=== PATIENT | female | born 1945 | race Caucasian/White ===

== ENCOUNTER 2022-11-11 17:41 | Inpatient (IN) ==
[2022-11-11] MEDS ORDERED: IPRATROPIUM/ALBUTEROL 3 ML AMPUL.NEB NEB ONE ×2 (18:02→19:08)
[2022-11-11] MEDS ORDERED: methylPREDNISolone SOD SUCC 125 MG/2 ML VIAL IV ONE (18:02)
--- NOTE | 2022-11-11 18:10 | Emergency Department Note ---
HPI <Marcus Amaya DO - Last Filed: 11/11/22 21:04> General Chief complaint: Weakness Stated complaint: Wants home health Time Seen by Provider: 11/11/22 18:02 Source: EMS Mode of arrival: EMS Limitations: physical limitation History of Present Illness HPI Narrative: Narrative: 77-year-old female presents the emergency department this patient is well-known to me I did read the chart when she was here from Monday and actually saw her over at [facility] in the emergency department 2 days ago for similar reason. She presents here via EMS as she still having chronic back pain as well as having a hard time breathing. states is unable to care for her that she is keeps on falling whenever she tries to walk and just said she is just so weak and tired and having a hard time breathing. She is still having a hard time breathing she still complain of just horrible back pain as well. Patient states that she just is unable to care for herself. This is now been her third visit within the last 4 days to multiple emergency departments mainly complaining of back pain but also the shortness of breath. Related Data Allergies Allergy/AdvReac Type Severity Reaction Status Date / Time acetaminophen [From Percocet] AdvReac Unknown Verified 11/11/22 17:44 aspirin [From Percodan] AdvReac Unknown Verified 11/11/22 17:44 midazolam [From Versed] AdvReac Unknown Verified 11/11/22 17:44 Morpholine Analogues AdvReac Unknown Verified 11/11/22 17:44 oxycodone [From Percodan] AdvReac Unknown Verified 11/11/22 17:44 Penicillins AdvReac Unknown Verified 11/11/22 17:44 Phenothiazines AdvReac Unknown Verified 11/11/22 17:44 prochlorperazine AdvReac Unknown Verified 11/11/22 17:44 [From Compazine] Review of Systems <Marcus mAaya DO - Last Filed: 11/11/22 21:04> ROS ROS Narrative: Narrative: All systems ED: reviewed and negative except as stated. PFSH <Marcus Amaya DO - Last Filed: 11/11/22 21:04> Narrative Patient History Narrative: Narrative: Medical/Surgical/Family History All Active Problems (Updated 11/11/22 @ 18:31 by Marcus Brown, DO) Closed compression fracture of lumbar vertebra (Acute) Hypoxia (Acute) Tobacco abuse (Acute) Obesity (BMI 30.0-34.9) (Acute) Medication side effect (Acute) Left against medical advice (Acute) T12 compression fracture (Acute) Acute exacerbation of chronic obstructive pulmonary disease (Acute) Acute respiratory failure with hypoxemia (Acute) Social History Smoking Status: Current every day smoker Exam <Marcus Amaya - Last Filed: 11/11/22 21:04> Narrative Narrative: Narrative: Vital signs noted General: Awake. Alert. No distress. Skin: Warm. Dry. No rash. HEENT: NCAT. PERRL. EOMI. No conjunctivitis. No nystagmus. No pharyngitis. Membranes moist. Neck: No PTP. Good ROM. No meningeal signs. No stridor. No thyromegaly. No JVD. Cardiovascular: RRR. No murmur. No rubs. No gallops. Respiratory: No respiratory distress with wheezes and rhonchi heard throughout. Gastrointestinal: Abdomen soft. No tenderness. No distention. Normal bowel sounds. No palpable organomegaly or masses. Back: No deformity. Lumbar back pain. But no step-offs or noticeable fractures. No CVAT. Musculoskeletal: No tenderness. No swelling. No erythema. No edema. Good peripheral pulses x 4 Lymphatic: No palpable adenopathy. Neurological: No focal neurological deficits observed. General Limitations: physical limitation Course <Marcus AmayaDO - Last Filed: 11/11/22 21:04> Vital Signs Vital signs: Vital Signs Temperature 98 F 11/11/22 17:42 Pulse Rate 99 H 11/11/22 17:42 Respiratory Rate 16 11/11/22 17:42 Blood Pressure 154/83 11/11/22 17:42 Pulse Oximetry (%) 88 L 11/11/22 17:42 Oxygen Delivery Method Room Air 11/11/22 17:42 Temperature 98 F 11/11/22 17:42 Pulse Rate 94 H 11/11/22 20:26 Respiratory Rate 16 11/11/22 17:42 Blood Pressure 137/47 11/11/22 20:01 Pulse Oximetry (%) 91 11/11/22 20:26 Oxygen Delivery Method Nasal Cannula 11/11/22 20:26 Oxygen Flow Rate (L/min) 3 11/11/22 20:26 <Abel Sandhu MD - Last Filed: 11/11/22 20:23> Consultations Consultation #1: The patient was inherited at change of shift with labs pending and disposition to admit. I have reviewed the patient's labs. I spoke with the hospitalist, Dr. Gee. He agreed to admit the patient. Time: 20:22 Vital Signs Vital signs: Vital Signs Temperature 98 F 11/11/22 17:42 Pulse Rate 99 H 11/11/22 17:42 Respiratory Rate 16 11/11/22 17:42 Blood Pressure 154/83 11/11/22 17:42 Pulse Oximetry (%) 88 L 11/11/22 17:42 Oxygen Delivery Method Room Air 11/11/22 17:42 Temperature 98 F 11/11/22 17:42 Pulse Rate 94 H 11/11/22 20:26 Respiratory Rate 16 11/11/22 17:42 Blood Pressure 137/47 11/11/22 20:01 Pulse Oximetry (%) 91 11/11/22 20:26 Oxygen Delivery Method Nasal Cannula 11/11/22 20:26 Oxygen Flow Rate (L/min) 3 11/11/22 20:26 MDM <Marcus Amaya DO - Last Filed: 11/11/22 21:04> MDM Narrative Medical decision making narrative: Narrative: Patient presents here with shortness of breath and lower back pain. I actually saw her over at [facility]. I did review my note and the CT radiological imaging that was done over there. Over there is a CT of the thoracic and lumbar spine was done as well as a CT angiogram of the chest as the previous visit here the patient left AMA before getting a CT angiogram of the chest as patient e levated D-dimer to rule out PE. There was no signs of PE on the CT angiogram of the chest. Also the lumbar spine did show a less than 50% compression fracture of T12. Patient is here she is very hypoxemic. She was in her previous visit as well as when she was over at [facility] with oxygen saturations below 90% and she does not have oxygen at home. She is satting and when I was seeing her without any oxygen around 84 to 85% and deftly have a hard harder time breathing. I am this is COPD that she has chronically that is exasperating is making it worse. Again I have very low suspicion for PE as 2 days ago she had a CT angiogram that was negative for PE so I do not think it is warranted to repeat a CT angiogram at this time. I will go ahead and get basic labs including CBC, CMP, procalcitonin, VBG. We will also get a chest x-ray. We will go ahead and give patient 3 DuoNeb treatments help see if that opens her up and helps with her breathing. We will also give her 125 mg of Solu-Medrol for the COPD exacerbation. This to be given IV. Patient I think is needing oxygen and she does not have oxygen at home as she is obviously hypoxemic. I think patient will most likely need to be admitted and I think overall needs to be admitted to a long term facility. I did speak with patient and family and they are okay with that plan. Labs and imaging are still pending. Labs and imaging are pending at the end of my shift. Patient will be signed out to the nighttime physician. Patient is no longer hypoxic while on oxygen she is on 2 L of oxygen now at 94% but is requiring oxygen whenever it comes off she does drop below 90. Lab Data 11/11/22 18:25 Labs: Lab Results 11/11/22 11/11/22 11/11/22 Range/Units 18:25 18:25 18:25 WBC 8.2 (4.5-11.0) K/mcL RBC 4.43 (3.59-5.38) M/mcL Hgb 15.2 (11.2-15.7) g/dL Hct 45.0 H (34.1-44.9) % POC Hct (36-48) MCV 101.6 H (80.0-100.0) fL MCH 34.3 H (26.0-34.0) pg MCHC 33.8 (31.0-36.0) g/dL RDW 12.3 (11.5-14.5) % Plt Count 247 (140-440) K/mcL MPV 10.4 (8.8-12.5) fL Immature Gran % (Auto) 0.5 (0.0-0.5) % Neut % (Auto) 72.6 (38.0-78.0) % Lymph % (Auto) 18.3 (15.5-49.0) % [place] % (Auto) 7.2 (1.0-12.0) % Eos % (Auto) 1.0 (0.0-7.0) % Baso % (Auto) 0.4 (0.0-2.0) % Lymph # (Auto) 1.51 (1.50-4.80) K/mcL [place] # (Auto) 0.59 (0.10-0.90) K/mcL Eos # (Auto) 0.08 (0.00-0.70) K/mcL Baso # (Auto) 0.03 (0.00-0.30) K/mcL Immature Gran # 0.04 (0.00-0.05) K/mcl Absolute Neutrophils 5.98 (1.80-8.00) K/mcL POC Sodium (133-145) POC Potassium (3.3-5.1) POC Chloride (96-108) POC Total CO2 (22-30) POC BUN (6-20) POC Creatinine (0.6-1.2) POC Glucose (70-105) POC WB Ioniz Calcium (1.16-1.32) NT-Pro-B Natriuret Pep 4986.0 H (<450.0) pg/mL Procalcitonin 6.47 H (<0.10) ng/mL 11/11/22 Range/Units 18:31 WBC (4.5-11.0) K/mcL RBC (3.59-5.38) M/mcL Hgb (11.2-15.7) g/dL Hct (34.1-44.9) % POC Hct 47.0 (36-48) MCV (80.0-100.0) fL MCH (26.0-34.0) pg MCHC (31.0-36.0) g/dL RDW (11.5-14.5) % Plt Count (140-440) K/mcL MPV (8.8-12.5) fL Immature Gran % (Auto) (0.0-0.5) % Neut % (Auto) (38.0-78.0) % Lymph % (Auto) (15.5-49.0) % [place] % (Auto) (1.0-12.0) % Eos % (Auto) (0.0-7.0) % Baso % (Auto) (0.0-2.0) % Lymph # (Auto) (1.50-4.80) K/mcL [place] # (Auto) (0.10-0.90) K/mcL Eos # (Auto) (0.00-0.70) K/mcL Baso # (Auto) (0.00-0.30) K/mcL Immature Gran # (0.00-0.05) K/mcl Absolute Neutrophils (1.80-8.00) K/mcL POC Sodium 137 (133-145) POC Potassium 4.6 (3.3-5.1) POC Chloride 99 (96-108) POC Total CO2 31.0 H (22-30) POC BUN 34 H (6-20) POC Creatinine 1.2 (0.6-1.2) POC Glucose 84 (70-105) POC WB Ioniz Calcium 1.16 (1.16-1.32) NT-Pro-B Natriuret Pep (<450.0) pg/mL Procalcitonin (<0.10) ng/mL <Abel Sandhu MD - Last Filed: 11/11/22 20:23> Lab Data Labs: Lab Results 11/11/22 11/11/22 11/11/22 Range/Units 18:25 18:25 18:25 WBC 8.2 (4.5-11.0) K/mcL RBC 4.43 (3.59-5.38) M/mcL Hgb 15.2 (11.2-15.7) g/dL Hct 45.0 H (34.1-44.9) % POC Hct (36-48) MCV 101.6 H (80.0-100.0) fL MCH 34.3 H (26.0-34.0) pg MCHC 33.8 (31.0-36.0) g/dL RDW 12.3 (11.5-14.5) % Plt Count 247 (140-440) K/mcL MPV 10.4 (8.8-12.5) fL Immature Gran % (Auto) 0.5 (0.0-0.5) % Neut % (Auto) 72.6 (38.0-78.0) % Lymph % (Auto) 18.3 (15.5-49.0) % [place] % (Auto) 7.2 (1.0-12.0) % Eos % (Auto) 1.0 (0.0-7.0) % Baso % (Auto) 0.4 (0.0-2.0) % Lymph # (Auto) 1.51 (1.50-4.80) K/mcL [place] # (Auto) 0.59 (0.10-0.90) K/mcL Eos # (Auto) 0.08 (0.00-0.70) K/mcL Baso # (Auto) 0.03 (0.00-0.30) K/mcL Immature Gran # 0.04 (0.00-0.05) K/mcl Absolute Neutrophils 5.98 (1.80-8.00) K/mcL POC Sodium (133-145) POC Potassium (3.3-5.1) POC Chloride (96-108) POC Total CO2 (22-30) POC BUN (6-20) POC Creatinine (0.6-1.2) POC Glucose (70-105) POC WB Ioniz Calcium (1.16-1.32) NT-Pro-B Natriuret Pep 4986.0 H (<450.0) pg/mL Procalcitonin 6.47 H (<0.10) ng/mL 11/11/22 Range/Units 18:31 WBC (4.5-11.0) K/mcL RBC (3.59-5.38) M/mcL Hgb (11.2-15.7) g/dL Hct (34.1-44.9) % POC Hct 47.0 (36-48) MCV (80.0-100.0) fL MCH (26.0-34.0) pg MCHC (31.0-36.0) g/dL RDW (11.5-14.5) % Plt Count (140-440) K/mcL MPV (8.8-12.5) fL Immature Gran % (Auto) (0.0-0.5) % Neut % (Auto) (38.0-78.0) % Lymph % (Auto) (15.5-49.0) % [place] % (Auto) (1.0-12.0) % Eos % (Auto) (0.0-7.0) % Baso % (Auto) (0.0-2.0) % Lymph # (Auto) (1.50-4.80) K/mcL [place] # (Auto) (0.10-0.90) K/mcL Eos # (Auto) (0.00-0.70) K/mcL Baso # (Auto) (0.00-0.30) K/mcL Immature Gran # (0.00-0.05) K/mcl Absolute Neutrophils (1.80-8.00) K/mcL POC Sodium 137 (133-145) POC Potassium 4.6 (3.3-5.1) POC Chloride 99 (96-108) POC Total CO2 31.0 H (22-30) POC BUN 34 H (6-20) POC Creatinine 1.2 (0.6-1.2) POC Glucose 84 (70-105) POC WB Ioniz Calcium 1.16 (1.16-1.32) NT-Pro-B Natriuret Pep (<450.0) pg/mL Procalcitonin (<0.10) ng/mL Discharge Plan Patient/Caregiver Discharge Instructions Pt seen by CABLE TOWER OPERATOR/PA only: No Clinical Impression: Acute exacerbation of chronic obstructive pulmonary disease, Acute respiratory failure with hypoxemia T12 compression fracture Qualifiers: Encounter type: initial encounter Qualified Code(s): S22.080A - Wedge compression fracture of T11-T12 vertebra, initial encounter for closed fracture Patient Disposition: Xfer As Inpt ([facility]) Condition: Fair Follow up with: Harrison Rubin DO [Primary Care Provider] -
--- NOTE | 2022-11-11 18:30 | XRay Report ---
CLINICAL INFORMATION: Dyspnea COMPARISON: 11/08/2022 TECHNIQUE: Portable FINDINGS: The heart is mildly enlarged. Slightly ectatic thoracic aorta noted. Remaining mediastinum is normal. Pulmonary vessels are slightly distended compared to previous exam. There is equivocal interstitial edema in the lateral bases. Minor bibasilar atelectasis noted. No effusions. IMPRESSION: Equivocal CHF. Consider diuretic trial Interpreted and Authenticated by: Valerio Calvo 11/11/22
[2022-11-11 18:34] LABS: POC Calcium, Ionized 1.16 (1.16-1.32); POC Creatinine 1.2 (0.6-1.2); POC Potassium 4.6 (3.3-5.1)
[2022-11-11] MEDS ORDERED: FUROSEMIDE 40 MG/4 ML VIAL IV ONE (19:03)
[2022-11-11 19:06] LABS: Basophils # (Auto) 0.03 K/mcL (0.00-0.30); Basophils % (Auto) 0.4 % (0.0-2.0); Eosinophils # (Auto) 0.08 K/mcL (0.00-0.70); Hemoglobin 15.2 g/dL (11.2-15.7); Lymphocytes # (Auto) 1.51 K/mcL (1.50-4.80); Lymphocytes % (Auto) 18.3 % (15.5-49.0); Mean Cell Volume 101.6 fL (80.0-100.0); Mean Corpuscular HGB Conc 33.8 g/dL (31.0-36.0); Mean Platelet Volume 10.4 fL (8.8-12.5); Monocytes # (Auto) 0.59 K/mcL (0.10-0.90); Monocytes % (Auto) 7.2 % (1.0-12.0); Neutrophils % (Auto) 72.6 % (38.0-78.0); Platelet Count 247 K/mcL (140-440); RBC 4.43 M/mcL (3.59-5.38); Red Cell Distribution Width 12.3 % (11.5-14.5); WBC 8.2 K/mcL (4.5-11.0)
--- NOTE | 2022-11-11 20:43 | Internal Med History&Physical ---
HPI History of Present Illness Patient information: Note initiated : 11/11/22 at 8:33 pm Service Date, if different from initiated Date: [] Patient: Shiva Esparza a 77 y/o F admitted on for [facility]. Chief Complaint: [] History of present illness: Ms. Esparza is a 77 year old F Presents the ED for back pain and weakness and her unable to care for her. Beginning of the week she fell and was seen over at [facility] where she had work-up and found to have a acute compression fracture of T12. She also was found to be hypoxic and had a CTA of the chest which showed no PE but did show infiltrate right lung described as mild patchy groundglass and will treat right middle lobe and right upper lobe. Also noted was moderate emphysema disease throughout. We do not have any medication list on file but she says she takes hydroc hlorothiazide and a cholesterol medication has a history of postpolio syndrome chronic pain hypertension hyperlipidemia. Patient states she does not feel short of breath and does not have a cough. She has not gained any weight including water weight or edema lately. Denies feeling wheezy. Since her original fall she is had subsequent falls and her cannot take care of her. In the ED she was mildly tachycardic. She had elevated procalcitonin of 6.4. Review of Systems: Pertinent positives above. Denies headache/fever/chills/nausea/vomiting/chest or abdominal pain/diarrhea. Remaining 10 point review of system reviewed negative PFSH PFSH All Active Problems (Updated 11/11/22 @ 18:31 by Marcus Amaya DO) Closed compression fracture of lumbar vertebra (Acute) Hypoxia (Acute) Tobacco abuse (Acute) Obesity (BMI 30.0-34.9) (Acute) Medication side effect (Acute) Left against medical advice (Acute) T12 compression fracture (Acute) Acute exacerbation of chronic obstructive pulmonary disease (Acute) Acute respiratory failure with hypoxemia (Acute) Social History smoking status: Current every day smoker MEDS/ALLERGIES Home Medications and Allergies Allergies Allergy/AdvReac Type Severity Reaction Status Date / Time acetaminophen [From Percocet] AdvReac Unknown Verified 11/11/22 17:44 aspirin [From Percodan] AdvReac Unknown Verified 11/11/22 17:44 midazolam [From Versed] AdvReac Unknown Verified 11/11/22 17:44 Morpholine Analogues AdvReac Unknown Verified 11/11/22 17:44 oxycodone [From Percodan] AdvReac Unknown Verified 11/11/22 17:44 Penicillins AdvReac Unknown Verified 11/11/22 17:44 Phenothiazines AdvReac Unknown Verified 11/11/22 17:44 prochlorperazine AdvReac Unknown Verified 11/11/22 17:44 [From Compazine] EXAM Constitutional Vitals: Temp Pulse Resp BP Pulse Ox O2 Del Method O2 Flow Rate 98 F 94 H 16 137/47 91 Nasal Cannula 3 11/11/22 17:42 11/11/22 20:26 11/11/22 17:42 11/11/22 20:01 11/11/22 20:26 11/11/22 20:26 11/11/22 20:26 Exam: General: Alert, Awake, No acute Distress Eyes/N/T: EOMI, PERRL, poor dentition Head/Neck: neck supple, normocephalic atraumatic, no JVD CV: RRR, No murmurs, normal s1/s2 Pulm: minimaly diminished at base but otherwise clear anterior and laterally, no wheezing Abd: soft, nontender, +BS x4 Ext: no clubbing/cyanosis, no edema Neuro: Alert, no focal deficits, moves all extremities, CN 2-12 grossly intact, sensations intact b/l upper/lower Skin: warm/dry DATA Data Completed and Pending Labs: Labs from last 24 hours 11/11/22 11/11/22 11/11/22 18:31 18:25 18:25 WBC RBC Hgb Hct POC Hct 47.0 MCV MCH MCHC RDW Plt Count MPV Immature Gran % (Auto) Neut % (Auto) Lymph % (Auto) [place] % (Auto) Eos % (Auto) Baso % (Auto) Lymph # (Auto) [place] # (Auto) Eos # (Auto) Baso # (Auto) Immature Gran # Absolute Neutrophils POC Sodium 137 POC Potassium 4.6 POC Chloride 99 POC Total CO2 31.0 H POC BUN 34 H POC Creatinine 1.2 POC Glucose 84 POC WB Ioniz Calcium 1.16 NT-Pro-B Natriuret Pep 4986.0 H Procalcitonin 6.47 H 11/11/22 18:25 WBC 8.2 RBC 4.43 Hgb 15.2 Hct 45.0 H POC Hct MCV 101.6 H MCH 34.3 H MCHC 33.8 RDW 12.3 Plt Count 247 MPV 10.4 Immature Gran % (Auto) 0.5 Neut % (Auto) 72.6 Lymph % (Auto) 18.3 [place] % (Auto) 7.2 Eos % (Auto) 1.0 Baso % (Auto) 0.4 Lymph # (Auto) 1.51 [place] # (Auto) 0.59 Eos # (Auto) 0.08 Baso # (Auto) 0.03 Immature Gran # 0.04 Absolute Neutrophils 5.98 POC Sodium POC Potassium POC Chloride POC Total CO2 POC BUN POC Creatinine POC Glucose POC WB Ioniz Calcium NT-Pro-B Natriuret Pep Procalcitonin A/P Narrative A/P Narrative: A: *Acute hypoxic respiratory failure: *Pneumonia (right side): -CTA yesterday no PE but right side pna -elevated PCT *COPD per imaging and smoking history: *Tobacco abuse: *CKD *HTN/HLD: *Chronic pain: *Anxiety: On diazepam *Acute T12 comp fracture: from recent fall *generalized weakness/deconditioning/inability to care for self P: -Antibiotics, pending BC/SC -O2 Supp and wean as able -Trend PCT -Follow-up CBC/CMP -Monitor I's and O's -Pain control including Lidoderm patch -vbg -Home medication reconciliation -Smoking cessation counseling >3 minutes -PT/OT -CM for placement -ppx: Lovenox Time Spent With Patient Time: Total time spent is greater than 50% in coordination of care (as documented) at patient's floor/unit and/or counseling patient: Initial: Total time with patient: 75 - 90 minutes
[2022-11-11] MEDS ORDERED: ONDANSETRON 4 MG/2 ML VIAL IV PRN (21:48)
[2022-11-11] MEDS ORDERED: POTASSIUM CHLORIDE 20 MEQ TABLET PO PRN ×2 (21:48)
[2022-11-11] MEDS ORDERED: cefTRIAXone 1 GM in DEXTROSE 5% IN WATER 50 ML IV SCH (21:48)
[2022-11-11] MEDS ORDERED: MAGNESIUM SULFATE 2 GM/50 ML BAG IV PRN (21:48)
[2022-11-11] MEDS ORDERED: POTASSIUM CHLORIDE 40 MEQ in DEXTROSE 5% IN WATER 500 ML IV PRN (21:48)
[2022-11-11] MEDS ORDERED: IPRATROPIUM/ALBUTEROL 3 ML AMPUL.NEB NEB PRN (21:48)
[2022-11-11] MEDS ORDERED: morphine 4 MG/ML VIAL IV PRN (21:48)
[2022-11-11] MEDS ORDERED: AZITHROMYCIN 500 MG in DEXTROSE 5% IN WATER 250 ML IV SCH (22:00)
[2022-11-11] MEDS: DOCUSATE SODIUM 100 MG CAPSULE PO SCH (22:31)
[2022-11-11] MEDS: cefTRIAXone 1 GM VIAL IV SCH (22:32)
[2022-11-11] MEDS: 0.9 % SODIUM CHLORIDE 10 ML SYRINGE IV SCH (22:32)
[2022-11-11] MEDS: HYDROcodone/APAP 5/325MG TABLET PO PRN (23:53)
[2022-11-12] MEDS: HYDROcodone/APAP 5/325MG TABLET PO PRN ×4 (03:54→20:48)
[2022-11-12 06:41] LABS: Basophils # (Auto) 0 K/mcL (0.00-0.30); Basophils % (Auto) 0 % (0.0-2.0); Eosinophils # (Auto) 0 K/mcL (0.00-0.70); Eosinophils % (Auto) 0 % (0.0-7.0); Hematocrit 41.6 % (34.1-44.9); Lymphocytes # (Auto) 0.51 K/mcL (1.50-4.80); Lymphocytes % (Auto) 12.3 % (15.5-49.0); Mean Cell Volume 101.5 fL (80.0-100.0); Mean Corpuscular HGB Conc 33.7 g/dL (31.0-36.0); Mean Platelet Volume 10.4 fL (8.8-12.5); Monocytes # (Auto) 0.05 K/mcL (0.10-0.90); Monocytes % (Auto) 1.2 % (1.0-12.0); Platelet Count 252 K/mcL (140-440); Red Cell Distribution Width 12.2 % (11.5-14.5); WBC 4.1 K/mcL (4.5-11.0)
[2022-11-12] MEDS: 0.9 % SODIUM CHLORIDE 10 ML SYRINGE IV SCH ×3 (06:58→19:40)
[2022-11-12 07:15] LABS: ALT/SGPT 19 U/L (<40); AST/SGOT 77 U/L (<32); Albumin/Globulin Ratio 0.8 (1.0-2.3); Alkaline Phosphatase 56 U/L (39-117); Bilirubin,Direct 0.3 mg/dL (<0.3); Bilirubin,Total 0.5 mg/dL (0.1-1.0); Blood Urea Nitrogen 35 mg/dL (8-23); Calcium 8.8 mg/dL (8.6-10.4); Carbon Dioxide 26 mmol/L (22-30); Chloride 95 mmol/L (96-108); Glomerular Filtration Rate 44; Glucose 121 mg/dL (70-105); Lactate Dehydrogenase 214 U/L (135-225); Phosphorous 4.9 mg/dL (2.5-4.5); Triglycerides 146 mg/dL (<150); Uric Acid 11.9 mg/dL (2.5-8.0)
[2022-11-12] MEDS ORDERED: 0.9 % SODIUM CHLORIDE 1,000 ML IV ONE (07:40)
--- NOTE | 2022-11-12 07:43 | Internal Med Progress Note ---
SUBJECTIVE Subjective Patient information: Note initiated : 11/12/22 at 7:36 am Service Date, if different from initiated Date: [] Patient: Shiva Esparza a 77 y/o F admitted on 11/11/22 for [facility] home health. Chief Complaint: [] Interval history: History of present illness: Ms. Esparza is a 77 year old F Presents the ED for back pain and weakness and her unable to care for her. Beginning of the week she fell and was seen over at [facility] where she had work-up and found to have a acute compression fracture of T12. She also was found to be hypoxic and had a CTA of the chest which showed no PE but did show infiltrate right lung described as mild patchy groundglass and will treat right middle lobe and right upper lobe. Also noted was moderate emphysema disease throughout. We do not have any medication list on file but she says she takes hydrochlorothiazide and a cholesterol medication has a history of postpolio syndrome chronic pain hypertension hyperlipidemia. Patient states she does not feel short of breath and does not have a cough. She has not gained any weight including water weight or edema lately. Denies feeling wheezy. Since her original fall she is had subsequent falls and her cannot take care of her. In the ED she was mildly tachycardic. She had elevated procalcitonin of 6.4. 11/12 Patient feeling better. Denies any significant cough and no shortness of breath. Leukopenia noted. Macrocytosis. Was found to be COVID-positive on testing. Started on remdesivir and dexamethasone. Requiring oxygen supplementation. Review of Systems: denies headache/fever/chills/nausea/vomiting/chest or abdominal pain/diarrhea. Otherwise see above. Constitutional Vitals: Vital Signs Temp Pulse Resp BP Pulse Ox O2 Del Method O2 Flow Rate 97.4 F 95 H 16 154/116 98 Nasal Cannula 3 11/12/22 07:00 11/12/22 07:00 11/12/22 07:00 11/12/22 07:00 11/12/22 07:00 11/12/22 07:00 11/12/22 07:00 Period Temp Pulse Resp BP Sys/Manzano Pulse Ox O2 Del Method O2 Flow Rate Last 24 Hr 97.4 F-98.1 F 86-102 16-20 124-169/47-116 85-98 Nasal Cannula- Room Air 3-4 Intake and Output 11/11/22 11/12/22 11/12/22 19:59 03:59 11:59 Intake Total 100 250 Output Total 275 Balance -175 250 Weight 70.307 kg 78.335 kg Intake & Output: Intake & Output 11/11/22 11/12/22 11/12/22 19:59 03:59 11:59 Intake Total 100 250 Output Total 275 Balance -175 250 Weight 70.307 kg 78.335 kg Intake: IV 250 Zithromax 500 mg In Dextrose 5% 250 in Water 250 ml @ 250 mls/hr IV Q24H [facility] Rx#:[id number] Oral 100 Output: Void Amount 275 Other: Urine Appearance Clear Urine Color Yellow Exam: General: Alert, Awake, No acute Distress Eyes/N/T: EOMI, Head/Neck: neck supple, CV: RRR, No murmurs, Pulm: minimaly diminished at base but otherwise clear anterior and laterally, no wheezing Abd: soft, nontender, +BS x4 Ext: no clubbing/cyanosis, no edema Neuro: Alert, no focal deficits, moves all extremities, Skin: warm/dry OBJ DATA Labs 11/12/22 04:56 11/12/22 04:56 Labs: Abnormal Lab Results 11/12/22 11/12/22 11/11/22 04:56 04:56 22:00 WBC 4.1 L Hct MCV 101.5 H MCH 34.1 H Neut % (Auto) 86.0 H Lymph % (Auto) 12.3 L Lymph # (Auto) 0.51 L [place] # (Auto) 0.05 L POC VBG pO2 POC Venous O2 Sat Chloride 95 L POC Total CO2 POC BUN BUN 35 H Creatinine 1.2 H Glucose 121 H Uric Acid 11.9 H Phosphorus 4.9 H Direct Bilirubin 0.3 H GGT 81 H AST 77 H C-Reactive Protein 5.20 H NT-Pro-B Natriuret Pep Albumin 3.0 L Globulin 4.0 H Albumin/Globulin Ratio 0.8 L Procalcitonin 11/11/22 11/11/22 11/11/22 21:02 18:31 18:25 WBC Hct MCV MCH Neut % (Auto) Lymph % (Auto) Lymph # (Auto) [place] # (Auto) POC VBG pO2 50 H POC Venous O2 Sat 82.0 H Chloride POC Total CO2 31.0 H POC BUN 34 H BUN Creatinine Glucose Uric Acid Phosphorus Direct Bilirubin GGT AST C-Reactive Protein NT-Pro-B Natriuret Pep 4986.0 H Albumin Globulin Albumin/Globulin Ratio Procalcitonin 11/11/22 11/11/22 18:25 18:25 WBC Hct 45.0 H MCV 101.6 H MCH 34.3 H Neut % (Auto) Lymph % (Auto) Lymph # (Auto) [place] # (Auto) POC VBG pO2 POC Venous O2 Sat Chloride POC Total CO2 POC BUN BUN Creatinine Glucose Uric Acid Phosphorus Direct Bilirubin GGT AST C-Reactive Protein NT-Pro-B Natriuret Pep Albumin Globulin Albumin/Globulin Ratio Procalcitonin 6.47 H Meds: Medications Acetaminophen (Acetaminophen 325 Mg Tablet) 650 mg PO Q6HP PRN PRN Reason: PAIN/FEVER > 101 Hydrocodone Bitart/Acetaminophen (Hydrocodone/Apap 5/325mg Tablet) 1 tab PO Q4HP PRN PRN Reason: PAIN LEVEL 3-6 Last Admin: 11/12/22 03:54 Dose: 1 tab Albuterol/Ipratropium (Ipratropium/Albuterol 3 Ml Ampul.Neb) 3 ml NEB Q4HP PRN PRN Reason: Shortness Of Breath Ceftriaxone Sodium (Ceftriaxone 1 Gm Vial) 1 gm IV Q24H [facility] Last Admin: 11/11/22 22:32 Dose: 1 gm Docusate Sodium (Docusate Sodium 100 Mg Capsule) 100 mg PO BID [facility] Last Admin: 11/11/22 22:31 Dose: 100 mg Enoxaparin Sodium (Enoxaparin 40 Mg/0.4 Ml Syringe) 40 mg SQ DAILY [facility] Magnesium Sulfate (Magnesium Sulfate) 2 gm in 50 mls @ 50 mls/hr IV UD PRN PRN Reason: Magnesium </= 1.6 Potassium Chloride 40 meq/ (Dextrose) 520 mls @ 130 mls/hr IV UD PRN PRN Reason: Potassium < 3 Azithromycin 500 mg/ Dextrose 250 mls @ 250 mls/hr IV Q24H [facility]; Protocol Stop: 11/13/22 22:59 Last Infusion: 11/12/22 06:21 Dose: Infused Lidocaine (Lidocaine Patch) 1 patch TOPICAL DAILY@1000 [facility] Ondansetron HCl (Ondansetron 4 Mg/2 Ml Vial) 4 mg IV Q4HP PRN PRN Reason: Nausea And Vomiting Polyethylene Glycol (Polyethylene Glycol 3350 17 Gm Packet) 17 gm PO DAILYP PRN PRN Reason: Constipation Potassium Chloride (Potassium Chloride 20 Meq Tablet) 40 meq PO UD PRN PRN Reason: Potassium < 3 Potassium Chloride (Potassium Chloride 20 Meq Tablet) 40 meq PO UD PRN PRN Reason: Potssium is 3-3.5 Senna (Sennosides 1 Tablet) 2 tab PO DAILYP PRN PRN Reason: Constipation Sodium Chloride (0.9 % Sodium Chloride 10 Ml Syringe) 10 ml IV Q8 [facility] Last Admin: 11/12/22 06:58 Dose: 10 ml A/P Narrative A/P Narrative: A: *Acute hypoxic respiratory failure: -on 2-3L NC *Pneumonia (right side): -CTA on @[facility] showed no PE but right side pna -elevated PCT *Covid (+): *COPD per imaging and smoking history: -pt denies subjective dyspnea on admit, thus likely chronically low *Tobacco abuse: *macrocytosis: check b12/folate *CKD IIIb: *Volume depletion: IVF's today *HTN/HLD: *Chronic pain: *Anxiety: On diazepam *Acute T12 comp fracture: from recent fall *generalized weakness/deconditioning/inability to care for self P: -Antibiotics, pending BC/SC -Dexa/Rem -proning/oob to chair/mobilization -O2 Supp and wean as able -IS/acapella, nebs, rt -Trend PCT -Follow-up CBC/CMP -Monitor I's and O's -Pain control including Lidoderm patch -vbg shows no lactic acidosis -cont home acei -Smoking cessation counseling -PT/OT -CM for placement -may need home o2, f/u with pulmonology for eval for copd -ppx: Lovenox Time Spent With Patient Time: Total time spent is greater than 50% in coordination of care (as documented) at patient's floor/unit and/or counseling patient: Subsequent: Total time with patient: 50 - 65 Minutes QUALITY VTE Deep Vein Thrombosis/Pulmonary Embolism Present on Admission: No
[2022-11-12] MEDS: DOCUSATE SODIUM 100 MG CAPSULE PO SCH ×2 (08:46→20:48)
[2022-11-12] MEDS: LISINOPRIL 20 MG TABLET PO SCH (08:46)
[2022-11-12] MEDS: LIDOCAINE PATCH TOPICAL SCH (08:47)
[2022-11-12] MEDS: ENOXAPARIN 40 MG/0.4 ML SYRINGE SQ SCH (08:47)
[2022-11-12] MEDS ORDERED: REMDESIVIR 200 MG in 0.9 % SODIUM CHLORIDE 250 ML IV SCH (10:00)
[2022-11-12] MEDS: DEXAMETHASONE 4 MG TABLET PO SCH (10:27)
[2022-11-12] MEDS: AZITHROMYCIN 250 MG TABLET PO SCH (11:57)
[2022-11-12 11:58] LABS: Folate 6.2 ng/mL (4.2-19.9)
[2022-11-12] MEDS: SENNOSIDES 1 TABLET PO PRN (12:13)
[2022-11-12] MEDS: POLYETHYLENE GLYCOL 3350 17 GM PACKET PO PRN (12:13)
[2022-11-12] MEDS: cefTRIAXone 1 GM VIAL IV SCH (12:14)
[2022-11-13] MEDS: HYDROcodone/APAP 5/325MG TABLET PO PRN ×5 (00:42→21:10)
[2022-11-13] MEDS: 0.9 % SODIUM CHLORIDE 10 ML SYRINGE IV SCH ×3 (04:13→21:20)
[2022-11-13] MEDS: ACETAMINOPHEN 325 MG TABLET PO PRN (06:54)
--- NOTE | 2022-11-13 08:04 | Internal Med Progress Note ---
SUBJECTIVE Subjective Patient information: Note initiated : 11/13/22 at 8:01 am Service Date, if different from initiated Date: [] Patient: Shiva Esparza a 77 y/o F admitted on 11/11/22 for [facility] health. Chief Complaint: [] Interval history: History of present illness: Ms. Esparza is a 77 year old F Presents the ED for back pain and weakness and her unable to care for her. Beginning of the week she fell and was seen over at [facility] where she had work-up and found to have a acute compression fracture of T12. She also was found to be hypoxic and had a CTA of the chest which showed no PE but did show infiltrate right lung described as mild patchy groundglass and will treat right middle lobe and right upper lobe. Also noted was moderate emphysema disease throughout. We do not have any medication list on file but she says she takes hydrochlorothiazide and a cholesterol medication has a history of postpolio syndrome chronic pain hypertension hyperlipidemia. Patient states she does not feel short of breath and does not have a cough. She has not gained any weight including water weight or edema lately. Denies feeling wheezy. Since her original fall she is had subsequent falls and her cannot take care of her. In the ED she was mildly tachycardic. She had elevated procalcitonin of 6.4. 11/12 Patient feeling better. Denies any significant cough and no shortness of breath. Leukopenia noted. Macrocytosis. Was found to be COVID-positive on testing. Started on remdesivir and dexamethasone. Requiring oxygen supplementation. 11/13 Patient complains of low back pain. Desires heating pad and will also p rescribed TLSO for when she is moving around. On several liters of oxygen overnight but good sats will trial on room air today. Review of Systems: denies headache/fever/chills/nausea/vomiting/chest or abdominal pain/diarrhea. Otherwise see above. Constitutional Vitals: Vital Signs Temp Pulse Resp BP Pulse Ox O2 Del Method O2 Flow Rate 97.4 F 80 18 139/55 2 L Nasal Cannula 2 11/13/22 07:00 11/13/22 07:00 11/13/22 07:00 11/13/22 07:00 11/13/22 07:14 11/13/22 07:14 11/13/22 07:00 Period Temp Pulse Resp BP Sys/Manzano Pulse Ox O2 Del Method O2 Flow Rate Last 24 Hr 97.4 F-99 F 76-94 16-20 132-165/53-99 2-98 Nasal Cannula-Room Air 2-2 Intake and Output 11/12/22 11/13/22 11/13/22 19:59 03:59 11:59 Intake Total 1920 700 0 Output Total 400 Balance 1520 700 0 Weight 79.56 kg Intake & Output: Intake & Output 11/12/22 11/13/22 11/13/22 19:59 03:59 11:59 Intake Total 1920 700 0 Output Total 400 Balance 1520 700 0 Weight 79.56 kg Intake: IV 1000 Sodium Chloride 0.9% 1,000 ml @ 1000 100 mls/hr IV .Q10H [facility] Rx#: [id number] Oral 920 700 0 Output: Void Amount 400 Other: Meal Lunch [place] from dinner only Percent of Meal Consumed 50% 100% Feeding Ability Assist with Tray Set Up Independent Urine Appearance Clear Urine Color Dark Yellow Urine Odor Normal Stool Size Small Stool Color Brown Stool Consistency Dry and Hard # Bowel Movements 1 Exam: General: Alert, Awake, No acute Distress Eyes/N/T: EOMI, Head/Neck: neck supple, CV: RRR, No murmurs, Pulm: minimaly diminished at base but otherwise clear anterior and laterally, no wheezing Abd: soft, nontender, +BS x4 Ext: no clubbing/cyanosis, no edema Neuro: Alert, no focal deficits, moves all extremities, Skin: warm/dry OBJ DATA Labs 11/12/22 04:56 11/12/22 04:56 Labs: Abnormal Lab Results 11/12/22 11/12/22 11/11/22 04:56 04:56 22:00 WBC 4.1 L Hct MCV 101.5 H MCH 34.1 H Neut % (Auto) 86.0 H Lymph % (Auto) 12.3 L Lymph # (Auto) 0.51 L [place] # (Auto) 0.05 L POC VBG pO2 POC Venous O2 Sat Chloride 95 L POC Total CO2 POC BUN BUN 35 H Creatinine 1.2 H Glucose 121 H Uric Acid 11.9 H Phosphorus 4.9 H Direct Bilirubin 0.3 H GGT 81 H AST 77 H C-Reactive Protein 5.20 H NT-Pro-B Natriuret Pep Albumin 3.0 L Globulin 4.0 H Albumin/Globulin Ratio 0.8 L Procalcitonin 11/11/22 11/11/22 11/11/22 21:02 18:31 18:25 WBC Hct MCV MCH Neut % (Auto) Lymph % (Auto) Lymph # (Auto) [place] # (Auto) POC VBG pO2 50 H POC Venous O2 Sat 82.0 H Chloride POC Total CO2 31.0 H POC BUN 34 H BUN Creatinine Glucose Uric Acid Phosphorus Direct Bilirubin GGT AST C-Reactive Protein NT-Pro-B Natriuret Pep 4986.0 H Albumin Globulin Albumin/Globulin Ratio Procalcitonin 11/11/22 11/11/22 18:25 18:25 WBC Hct 45.0 H MCV 101.6 H MCH 34.3 H Neut % (Auto) Lymph % (Auto) Lymph # (Auto) [place] # (Auto) POC VBG pO2 POC Venous O2 Sat Chloride POC Total CO2 POC BUN BUN Creatinine Glucose Uric Acid Phosphorus Direct Bilirubin GGT AST C-Reactive Protein NT-Pro-B Natriuret Pep Albumin Globulin Albumin/Globulin Ratio Procalcitonin 6.47 H Meds: Medications Acetaminophen (Acetaminophen 325 Mg Tablet) 650 mg PO Q6HP PRN PRN Reason: PAIN/FEVER > 101 Last Admin: 11/13/22 06:54 Dose: 650 mg Hydrocodone Bitart/Acetaminophen (Hydrocodone/Apap 5/325mg Tablet) 1 tab PO Q4HP PRN PRN Reason: PAIN LEVEL 3-6 Last Admin: 11/13/22 05:00 Dose: 1 tab Albuterol/Ipratropium (Ipratropium/Albuterol 3 Ml Ampul.Neb) 3 ml NEB Q4HP PRN PRN Reason: Shortness Of Breath Azithromycin (Azithromycin 250 Mg Tablet) 500 mg PO DAILY@1200 [facility] Stop: 11/13/22 12:01 Last Admin: 11/12/22 11:57 Dose: 500 mg Ceftriaxone Sodium (Ceftriaxone 1 Gm Vial) 1 gm IV Q24H [facility] Last Admin: 11/12/22 12:14 Dose: 1 gm Dexamethasone (Dexamethasone 4 Mg Tablet) 6 mg PO DAILY [facility] Stop: 11/21/22 09:01 Last Admin: 11/12/22 10:27 Dose: 6 mg Diazepam (Diazepam 10 Mg Tablet) 10 mg PO TIDP PRN PRN Reason: leg cramps Docusate Sodium (Docusate Sodium 100 Mg Capsule) 100 mg PO BID [facility] Last Admin: 11/12/22 20:48 Dose: 100 mg Enoxaparin Sodium (Enoxaparin 40 Mg/0.4 Ml Syringe) 40 mg SQ DAILY [facility] Last Admin: 11/12/22 08:47 Dose: 40 mg Magnesium Sulfate (Magnesium Sulfate) 2 gm in 50 mls @ 50 mls/hr IV UD PRN PRN Reason: Magnesium </= 1.6 Potassium Chloride 40 meq/ (Dextrose) 520 mls @ 130 mls/hr IV UD PRN PRN Reason: Potassium < 3 REMDESIVIR 100 mg/ Sodium (Chloride) 250 mls @ 500 mls/hr IV Q24H [facility] Stop: 11/16/22 09:29 Lidocaine (Lidocaine Patch) 1 patch TOPICAL DAILY@1000 [facility] Last Admin: 11/12/22 08:47 Dose: 1 patch Lisinopril (Lisinopril 20 Mg Tablet) 40 mg PO QDAY [facility] Last Admin: 11/12/22 08:46 Dose: 40 mg Ondansetron HCl (Ondansetron 4 Mg/2 Ml Vial) 4 mg IV Q4HP PRN PRN Reason: Nausea And Vomiting Polyethylene Glycol (Polyethylene Glycol 3350 17 Gm Packet) 17 gm PO DAILYP PRN PRN Reason: Constipation Last Admin: 11/12/22 12:13 Dose: 17 gm Potassium Chloride (Potassium Chloride 20 Meq Tablet) 40 meq PO UD PRN PRN Reason: Potassium < 3 Potassium Chloride (Potassium Chloride 20 Meq Tablet) 40 meq PO UD PRN PRN Reason: Potssium is 3-3.5 Senna (Sennosides 1 Tablet) 2 tab PO DAILYP PRN PRN Reason: Constipation Last Admin: 11/12/22 12:13 Dose: 2 tab Sodium Chloride (0.9 % Sodium Chloride 10 Ml Syringe) 10 ml IV Q8 [facility] Last Admin: 11/13/22 04:13 Dose: 10 ml A/P Narrative A/P Narrative: A: *Acute hypoxic respiratory failure: -on 2L NC but good sats, wean down *Pneumonia (right side): -CTA on @[facility] showed no PE but right side pna -elevated PCT but improving *Covid (+): *COPD per imaging and smoking history: -pt denies subjective dyspnea on admit, thus likely chronically low *Tobacco abuse: *macrocytosis: b12/folate ok *CKD IIIb: *Volume depletion: IVF's today *HTN/HLD: *Chronic pain: *Anxiety: On diazepam *Acute T12 comp fracture: from recent fall *generalized weakness/deconditioning/inability to care for self P: -Antibiotics, pending BC/SC -Dexa/Rem -proning/oob to chair/mobilization -O2 Supp and wean as able -IS/acapella, nebs, rt -Trend PCT -Follow-up CBC/CMP -Monitor I's and O's -Pain control including Lidoderm patch, norco, heating pad, TLSO brace -cont home acei -Smoking cessation counseling -PT/OT -CM for placement -may need home o2, f/u with pulmonology for eval for copd -ppx: Lovenox Time Spent With Patient Time: Total time spent is greater than 50% in coordination of care (as documented) at patient's floor/unit and/or counseling patient: Subsequent: Total time with patient: 35 - 49 minutes QUALITY VTE Deep Vein Thrombosis/Pulmonary Embolism Present on Admission: No
[2022-11-13] MEDS: ENOXAPARIN 40 MG/0.4 ML SYRINGE SQ SCH (09:49)
[2022-11-13] MEDS: DEXAMETHASONE 4 MG TABLET PO SCH (09:49)
[2022-11-13] MEDS: SENNOSIDES 1 TABLET PO PRN (09:50)
[2022-11-13] MEDS: DOCUSATE SODIUM 100 MG CAPSULE PO SCH ×2 (09:52→21:10)
[2022-11-13] MEDS: LISINOPRIL 20 MG TABLET PO SCH (09:52)
[2022-11-13] MEDS: REMDESIVIR 100 MG in 0.9 % SODIUM CHLORIDE 250 ML IV SCH (10:00)
[2022-11-13] MEDS: LIDOCAINE PATCH TOPICAL SCH (10:02)
[2022-11-13] MEDS: POLYETHYLENE GLYCOL 3350 17 GM PACKET PO PRN (10:07)
[2022-11-13 10:10] LABS: Basophils # (Auto) 0.01 K/mcL (0.00-0.30); Basophils % (Auto) 0.1 % (0.0-2.0); Eosinophils # (Auto) 0.01 K/mcL (0.00-0.70); Eosinophils % (Auto) 0.1 % (0.0-7.0); Hematocrit 48.9 % (34.1-44.9); Hemoglobin 15.7 g/dL (11.2-15.7); Lymphocytes # (Auto) 0.83 K/mcL (1.50-4.80); Lymphocytes % (Auto) 10.5 % (15.5-49.0); Mean Cell Volume 107.5 fL (80.0-100.0); Mean Corpuscular HGB Conc 32.1 g/dL (31.0-36.0); Monocytes % (Auto) 8.9 % (1.0-12.0); Platelet Count 195 K/mcL (140-440); RBC 4.55 M/mcL (3.59-5.38); Red Cell Distribution Width 12.3 % (11.5-14.5); WBC 7.9 K/mcL (4.5-11.0)
[2022-11-13 10:26] LABS: ALT/SGPT 23 U/L (<40); AST/SGOT 71 U/L (<32); Albumin 3.2 gm/dL (3.2-5.2); Albumin/Globulin Ratio 0.8 (1.0-2.3); Alkaline Phosphatase 58 U/L (39-117); Bilirubin,Direct 0.3 mg/dL (<0.3); Bilirubin,Total 0.5 mg/dL (0.1-1.0); Blood Urea Nitrogen 37 mg/dL (8-23); Calcium 9.2 mg/dL (8.6-10.4); Carbon Dioxide 25 mmol/L (22-30); Chloride 95 mmol/L (96-108); Glomerular Filtration Rate 54; Glucose 109 mg/dL (70-105); Lactate Dehydrogenase 246 U/L (135-225); Phosphorous 3.2 mg/dL (2.5-4.5); Triglycerides 149 mg/dL (<150)
--- NOTE | 2022-11-13 11:46 | Discharge Summary ---
Discharge Provider Provider IMPORTANT FOLLOW-UP INFORMATION FOR PCP: Patient information: Note initiated : 11/13/22 at 11:44 am Service Date, if different from initiated Date: [] Patient: Shiva Esparza a 77 y/o F admitted on 11/11/22 for [facility]. Chief Complaint: [] Date of admission: 11/11/22 21:41 Primary care physician: Harrison Rubin Consults: 11/11/22 Consult to Physician [CONS] Stat Comment: Consulting Provider: Sushil Gee Reason For Exam: Physician to Consult COURSE Hospital Course Hospital course: History of present illness: Ms. Esparza is a 77 year old F Presents the ED for back pain and weakness and her unable to care for her. Beginning of the week she fell and was seen over at [facility] where she had work-up and found to have a acute compression fracture of T12. She also was found to be hypoxic and had a CTA of the chest which showed no PE but did show infiltrate right lung described as mild patchy groundglass and will treat right middle lobe and right upper lobe. Also noted was moderate emphysema disease throughout. We do not have any medication list on file but she says she takes hydrochlorothiazide and a cholesterol medication has a history of postpolio syndrome chronic pain hypertension hyperlipidemia. Patient states she does not feel short of breath and does not have a cough. She has not gained any weight including water weight or edema lately. Denies feeling wheezy. Since her original fall she is had subsequent falls and her cannot take care of her. In the ED she was mildly tachycardic. She had elevated procalcitonin of 6.4. 11/12 Patient feeling better. Denies any significant cough and no shortness of breath. Leukopenia noted. Macrocytosis. Was found to be COVID-positive on testing. Started on remdesivir and dexamethasone. Requiring oxygen supplementation. 11/13 Patient complains of low back pain. Desires heating pad and will also prescribed TLSO for when she is moving around. On several liters of oxygen overnight but good sats will trial on room air today. A: *Acute hypoxic respiratory failure: *Pneumonia (right side): -CTA on @[facility] showed no PE but right side pna *Covid (+): *COPD per imaging and smoking history: -pt denies subjective dyspnea on admit, thus likely chronically low *Tobacco abuse: *macrocytosis: b12/folate ok *CKD IIIb: *Volume depletion: IVF's today *HTN/HLD: *Chronic pain: *Anxiety: On diazepam *Acute T12 comp fracture: from recent fall *generalized weakness/deconditioning/inability to care for self P: -Antibiotics -RT eval for homeo2, f/u with pulmonology for eval for copd Discharge diagnosis: Hypoxic respiratory failure pneumonia COVID COPD Secondary discharge diagnosis: Tobacco abuse anemia CKD 5 depression chronic pain Anxiety acute T12 compression fracture Time Spent with Patient Time attestation: Total time spent providing and/or coordinating discharge services: Time spent: Greater than 30 minutes EXAM Constitutional Vitals: Temp Pulse Resp BP Pulse Ox O2 Del Method O2 Flow Rate 97.3 F 82 19 123/78 94 Room Air 2 11/13/22 11:00 11/13/22 11:00 11/13/22 11:00 11/13/22 11:00 11/13/22 11:00 11/13/22 11:00 11/13/22 07:00 Discharge Data Data Completed and Pending Labs on day of discharge: Labs from last 24 hours 11/13/22 11/13/22 11/13/22 09:20 09:20 09:20 WBC 7.9 RBC 4.55 Hgb 15.7 Hct 48.9 H MCV 107.5 H MCH 34.5 H MCHC 32.1 RDW 12.3 Plt Count 195 MPV 10.0 Immature Gran % (Auto) 0.4 Neut % (Auto) 80.0 H Lymph % (Auto) 10.5 L [place] % (Auto) 8.9 Eos % (Auto) 0.1 Baso % (Auto) 0.1 Lymph # (Auto) 0.83 L [place] # (Auto) 0.70 Eos # (Auto) 0.01 Baso # (Auto) 0.01 Immature Gran # 0.03 Absolute Neutrophils 6.31 Sodium 132 L Potassium 4.6 Chloride 95 L Carbon Dioxide 25 Anion Gap 12.0 BUN 37 H Creatinine 1.0 GFR Calculation 54 Glucose 109 H Uric Acid 10.0 H Calcium 9.2 Phosphorus 3.2 Magnesium 2.1 Total Bilirubin 0.5 Direct Bilirubin 0.3 H GGT 89 H AST 71 H ALT 23 Alkaline Phosphatase 58 Lactate Dehydrogenase 246 H C-Reactive Protein 2.10 H Total Protein 7.2 Albumin 3.2 Globulin 4.0 H Albumin/Globulin Ratio 0.8 L Triglycerides 149 Vitamin B12 Folate Procalcitonin 3.15 H 11/12/22 11/12/22 10:35 10:34 WBC RBC Hgb Hct MCV MCH MCHC RDW Plt Count MPV Immature Gran % (Auto) Neut % (Auto) Lymph % (Auto) [place] % (Auto) Eos % (Auto) Baso % (Auto) Lymph # (Auto) [place] # (Auto) Eos # (Auto) Baso # (Auto) Immature Gran # Absolute Neutrophils Sodium Potassium Chloride Carbon Dioxide Anion Gap BUN Creatinine GFR Calculation Glucose Uric Acid Calcium Phosphorus Magnesium Total Bilirubin Direct Bilirubin GGT AST ALT Alkaline Phosphatase Lactate Dehydrogenase C-Reactive Protein Total Protein Albumin Globulin Albumin/Globulin Ratio Triglycerides Vitamin B12 430.3 Folate 6.2 Procalcitonin Preliminary micro results at discharge 11/11/22 22:10 Blood Culture - Preliminary Blood 11/11/22 22:00 Blood Culture - Preliminary Blood Discharge Plan Patient/Caregiver Discharge Instructions Activity: increase activity as tolerated Diet: Regular Diet Activity Restrictions/Additional Instructions: TLSO brace. Prescriptions: New lidocaine 5 % Adhesive Patch,Medicated 1 patch topical DAILY@1000 Qty: 7 0RF methocarbamol 500 mg tablet 500 mg PO TID PRN (Reason: spasm/pain) Qty: 20 0RF Continued diazepam 10 mg tablet 10 mg PO TIDP PRN (Reason: leg cramps) hydrocodone-acetaminophen 10-325 mg tablet PO PRN (Reason: Back Pain) lisinopril 40 mg tablet 40 mg PO QDAY Follow Up Plan Follow up with: Harrison Rubin DO [Primary Care Provider] - Prognosis: Fair Rehab Potential: Fair I certify that the patient requires SNF services: Yes Overall status at discharge: patient is progressing back to baseline QUALITY VTE Deep Vein Thrombosis/Pulmonary Embolism Present on Admission: No
[2022-11-13] MEDS: AZITHROMYCIN 250 MG TABLET PO SCH (13:10)
[2022-11-13] MEDS: cefTRIAXone 1 GM VIAL IV SCH (13:21)
[2022-11-13] MEDS: METHOCARBAMOL 1,000 MG/10 ML VIAL IV PRN (19:27)
[2022-11-14] MEDS: METHOCARBAMOL 1,000 MG/10 ML VIAL IV PRN ×3 (01:50→17:33)
[2022-11-14] MEDS: HYDROcodone/APAP 5/325MG TABLET PO PRN ×4 (01:50→19:01)
[2022-11-14] MEDS: DIAZEPAM 10 MG TABLET PO PRN ×3 (04:09→21:13)
[2022-11-14] MEDS: ENOXAPARIN 40 MG/0.4 ML SYRINGE SQ SCH (07:26)
[2022-11-14] MEDS: DEXAMETHASONE 4 MG TABLET PO SCH (07:26)
[2022-11-14] MEDS: LISINOPRIL 20 MG TABLET PO SCH (07:26)
--- NOTE | 2022-11-14 07:26 | Internal Med Progress Note ---
SUBJECTIVE Subjective Patient information: Note initiated : 11/14/22 at 7:25 am Service Date, if different from initiated Date: [] Patient: Shiva Esparza a 77 y/o F admitted on 11/11/22 for [facility] home health. Chief Complaint: [] Interval history: History of present illness: Ms. Esparza is a 77 year old F Presents the ED for back pain and weakness and her unable to care for her. Beginning of the week she fell and was seen over at [facility] where she had work-up and found to have a acute compression fracture of T12. She also was found to be hypoxic and had a CTA of the chest which showed no PE but did show infiltrate right lung described as mild patchy groundglass and will treat right middle lobe and right upper lobe. Also noted was moderate emphysema disease throughout. We do not have any medication list on file but she says she takes hydrochlorothiazide and a cholesterol medication has a history of postpolio syndrome chronic pain hypertension hyperlipidemia. Patient states she does not feel short of breath and does not have a cough. She has not gained any weight including water weight or edema lately. Denies feeling wheezy. Since her original fall she is had subsequent falls and her cannot take care of her. In the ED she was mildly tachycardic. She had elevated procalcitonin of 6.4. 11/12 Patient feeling better. Denies any significant cough and no shortness of breath. Leukopenia noted. Macrocytosis. Was found to be COVID-positive on testing. Started on remdesivir and dexamethasone. Requiring oxygen supplementation. 11/13 Patient complains of low back pain. Desires heating pad and will also p rescribed TLSO for when she is moving around. On several liters of oxygen overnight but good sats will trial on room air today. 11/14 Patient doing well. On room air. Patient feeling better. No overnight event or new complaints. Back pain seems to be doing a little better today. Review of Systems: denies headache/fever/chills/nausea/vomiting/chest or abdominal pain/diarrhea. Otherwise see above. Constitutional Vitals: Vital Signs Temp Pulse Resp BP Pulse Ox O2 Del Method O2 Flow Rate 97.2 F 65 20 131/62 91 Room Air 2 11/14/22 07:25 11/14/22 07:25 11/14/22 03:55 11/14/22 03:55 11/14/22 07:25 11/14/22 07:25 11/13/22 07:00 Period Temp Pulse Resp BP Sys/Manzano Pulse Ox O2 Del Method O2 Flow Rate Last 24 Hr 96.4 F-97.6 F 65-84 16-20 123-131/61-78 91-94 Room Air-Room Air Intake and Output 11/13/22 11/14/22 11/14/22 19:59 03:59 11:59 Intake Total 360 1150 Output Total 250 450 Balance 110 700 Weight 79.56 kg 79.379 kg Intake & Output: Intake & Output 11/13/22 11/14/22 11/14/22 19:59 03:59 11:59 Intake Total 360 1150 Output Total 250 450 Balance 110 700 Weight 79.56 kg 79.379 kg Intake: Oral 360 1150 Output: Void Amount 250 450 Other: Meal Lunch Percent of Meal Consumed 50% Feeding Ability Assist with Tray Set Up Urine Appearance Clear Clear Urine Color Dark Yellow Dark Julia # Voids 1 Exam: General: Alert, Awake, No acute Distress Eyes/N/T: EOMI, Head/Neck: neck supple, CV: RRR, No murmurs, Pulm: clearing b/l wheezing Abd: soft, nontender, +BS x4 Ext: no clubbing/cyanosis, no edema Neuro: Alert, no focal deficits, moves all extremities, Skin: warm/dry OBJ DATA Labs 11/13/22 09:20 11/13/22 09:20 Labs: Abnormal Lab Results 11/13/22 11/13/22 11/13/22 09:20 09:20 09:20 WBC Hct 48.9 H MCV 107.5 H MCH 34.5 H Neut % (Auto) 80.0 H Lymph % (Auto) 10.5 L Lymph # (Auto) 0.83 L [place] # (Auto) POC VBG pO2 POC Venous O2 Sat Sodium 132 L Chloride 95 L POC Total CO2 POC BUN BUN 37 H Creatinine Glucose 109 H Uric Acid 10.0 H Phosphorus Direct Bilirubin 0.3 H GGT 89 H AST 71 H Lactate Dehydrogenase 246 H C-Reactive Protein 2.10 H NT-Pro-B Natriuret Pep Albumin Globulin 4.0 H Albumin/Globulin Ratio 0.8 L Procalcitonin 3.15 H 11/12/22 11/12/22 11/11/22 04:56 04:56 22:00 WBC 4.1 L Hct MCV 101.5 H MCH 34.1 H Neut % (Auto) 86.0 H Lymph % (Auto) 12.3 L Lymph # (Auto) 0.51 L [place] # (Auto) 0.05 L POC VBG pO2 POC Venous O2 Sat Sodium Chloride 95 L POC Total CO2 POC BUN BUN 35 H Creatinine 1.2 H Glucose 121 H Uric Acid 11.9 H Phosphorus 4.9 H Direct Bilirubin 0.3 H GGT 81 H AST 77 H Lactate Dehydrogenase C-Reactive Protein 5.20 H NT-Pro-B Natriuret Pep Albumin 3.0 L Globulin 4.0 H Albumin/Globulin Ratio 0.8 L Procalcitonin 11/11/22 11/11/22 11/11/22 21:02 18:31 18:25 WBC Hct MCV MCH Neut % (Auto) Lymph % (Auto) Lymph # (Auto) [place] # (Auto) POC VBG pO2 50 H POC Venous O2 Sat 82.0 H Sodium Chloride POC Total CO2 31.0 H POC BUN 34 H BUN Creatinine Glucose Uric Acid Phosphorus Direct Bilirubin GGT AST Lactate Dehydrogenase C-Reactive Protein NT-Pro-B Natriuret Pep 4986.0 H Albumin Globulin Albumin/Globulin Ratio Procalcitonin 11/11/22 11/11/22 18:25 18:25 WBC Hct 45.0 H MCV 101.6 H MCH 34.3 H Neut % (Auto) Lymph % (Auto) Lymph # (Auto) [place] # (Auto) POC VBG pO2 POC Venous O2 Sat Sodium Chloride POC Total CO2 POC BUN BUN Creatinine Glucose Uric Acid Phosphorus Direct Bilirubin GGT AST Lactate Dehydrogenase C-Reactive Protein NT-Pro-B Natriuret Pep Albumin Globulin Albumin/Globulin Ratio Procalcitonin 6.47 H Meds: Medications Acetaminophen (Acetaminophen 325 Mg Tablet) 650 mg PO Q6HP PRN PRN Reason: PAIN/FEVER > 101 Last Admin: 11/13/22 06:54 Dose: 650 mg Hydrocodone Bitart/Acetaminophen (Hydrocodone/Apap 5/325mg Tablet) 1 - 2 tab PO Q4HP PRN PRN Reason: PAIN LEVEL 3-6 Last Admin: 11/14/22 01:50 Dose: 2 tab Albuterol/Ipratropium (Ipratropium/Albuterol 3 Ml Ampul.Neb) 3 ml NEB Q4HP PRN PRN Reason: Shortness Of Breath Ceftriaxone Sodium (Ceftriaxone 1 Gm Vial) 1 gm IV Q24H [facility] Last Admin: 11/13/22 13:21 Dose: 1 gm Dexamethasone (Dexamethasone 4 Mg Tablet) 6 mg PO DAILY [facility] Stop: 11/21/22 09:01 Last Admin: 11/13/22 09:49 Dose: 6 mg Diazepam (Diazepam 10 Mg Tablet) 10 mg PO TIDP PRN PRN Reason: leg cramps Last Admin: 11/14/22 04:09 Dose: 10 mg Docusate Sodium (Docusate Sodium 100 Mg Capsule) 100 mg PO BID [facility] Last Admin: 11/13/22 21:10 Dose: 100 mg Enoxaparin Sodium (Enoxaparin 40 Mg/0.4 Ml Syringe) 40 mg SQ DAILY [facility] Last Admin: 11/13/22 09:49 Dose: 40 mg Magnesium Sulfate (Magnesium Sulfate) 2 gm in 50 mls @ 50 mls/hr IV UD PRN PRN Reason: Magnesium </= 1.6 Potassium Chloride 40 meq/ (Dextrose) 520 mls @ 130 mls/hr IV UD PRN PRN Reason: Potassium < 3 REMDESIVIR 100 mg/ Sodium (Chloride) 250 mls @ 500 mls/hr IV Q24H [facility] Stop: 11/16/22 09:29 Last Infusion: 11/13/22 10:40 Dose: Infused Lidocaine (Lidocaine Patch) 1 patch TOPICAL DAILY@1000 [facility] Last Admin: 11/13/22 10:02 Dose: 1 patch Lisinopril (Lisinopril 20 Mg Tablet) 40 mg PO QDAY [facility] Last Admin: 11/13/22 09:52 Dose: 40 mg Methocarbamol (Methocarbamol 1,000 Mg/10 Ml Vial) 750 mg IV Q6HP PRN PRN Reason: Muscle Spasm Last Admin: 11/14/22 01:50 Dose: 750 mg Ondansetron HCl (Ondansetron 4 Mg/2 Ml Vial) 4 mg IV Q4HP PRN PRN Reason: Nausea And Vomiting Polyethylene Glycol (Polyethylene Glycol 3350 17 Gm Packet) 17 gm PO DAILYP PRN PRN Reason: Constipation Last Admin: 11/13/22 10:07 Dose: 17 gm Potassium Chloride (Potassium Chloride 20 Meq Tablet) 40 meq PO UD PRN PRN Reason: Potassium < 3 Potassium Chloride (Potassium Chloride 20 Meq Tablet) 40 meq PO UD PRN PRN Reason: Potssium is 3-3.5 Senna (Sennosides 1 Tablet) 2 tab PO DAILYP PRN PRN Reason: Constipation Last Admin: 11/13/22 09:50 Dose: 2 tab Sodium Chloride (0.9 % Sodium Chloride 10 Ml Syringe) 10 ml IV Q8 [facility] Last Admin: 11/13/22 21:20 Dose: 10 ml A/P Narrative A/P Narrative: A: *Acute hypoxic respiratory failure: -now on room air *Pneumonia (right side): -CTA on @[facility] showed no PE but right side pna -elevated PCT but improving *Covid (+): *COPD per imaging and smoking history: -pt denies subjective dyspnea on admit, thus likely chronically low *Tobacco abuse: *macrocytosis: b12/folate ok *CKD IIIb: *Volume depletion: IVF's today *HTN/HLD: *Chronic pain: *Anxiety: On diazepam *Acute T12 comp fracture: from recent fall *generalized weakness/deconditioning/inability to care for self P: -Antibiotics, pending BC/SC -Dexa/Rem -proning/oob to chair/mobilization -O2 Supp and wean as able -IS/acapella, nebs, rt -Trend PCT -Follow-up CBC/CMP -Monitor I's and O's -Pain control including Lidoderm patch, norco, heating pad, TLSO brace -cont home acei -Smoking cessation counseling -PT/OT -CM for placement -may need home o2, f/u with pulmonology for eval for copd -ppx: Lovenox Time Spent With Patient Time: Total time spent is greater than 50% in coordination of care (as documented) at patient's floor/unit and/or counseling patient: QUALITY VTE Deep Vein Thrombosis/Pulmonary Embolism Present on Admission: No
[2022-11-14] MEDS: 0.9 % SODIUM CHLORIDE 10 ML SYRINGE IV SCH ×3 (07:27→21:20)
[2022-11-14] MEDS: DOCUSATE SODIUM 100 MG CAPSULE PO SCH ×2 (07:27→21:13)
[2022-11-14] MEDS: LIDOCAINE PATCH TOPICAL SCH (10:05)
[2022-11-14] MEDS: REMDESIVIR 100 MG in 0.9 % SODIUM CHLORIDE 250 ML IV SCH (10:05)
[2022-11-14] MEDS: ACETAMINOPHEN 325 MG TABLET PO PRN (13:49)
[2022-11-14] MEDS: CEFDINIR 300 MG CAPSULE PO SCH (21:13)
[2022-11-15] MEDS: METHOCARBAMOL 1,000 MG/10 ML VIAL IV PRN ×2 (00:36→06:01)
[2022-11-15] MEDS: DIAZEPAM 10 MG TABLET PO PRN ×3 (02:46→21:38)
[2022-11-15] MEDS: HYDROcodone/APAP 5/325MG TABLET PO PRN ×5 (04:32→21:38)
[2022-11-15] MEDS: 0.9 % SODIUM CHLORIDE 10 ML SYRINGE IV SCH ×3 (06:00→21:42)
[2022-11-15 08:28] LABS: ALT/SGPT 21 U/L (<40); AST/SGOT 41 U/L (<32); Albumin 2.8 gm/dL (3.2-5.2); Albumin/Globulin Ratio 0.9 (1.0-2.3); Alkaline Phosphatase 47 U/L (39-117); Bilirubin,Direct 0.2 mg/dL (<0.3); Bilirubin,Total 0.4 mg/dL (0.1-1.0); Blood Urea Nitrogen 30 mg/dL (8-23); Calcium 8.4 mg/dL (8.6-10.4); Carbon Dioxide 28 mmol/L (22-30); Chloride 99 mmol/L (96-108); Globulin 3.2 gm/dL (2.2-3.7); Glomerular Filtration Rate 54; Glucose 89 mg/dL (70-105); Lactate Dehydrogenase 197 U/L (135-225); Phosphorous 2.9 mg/dL (2.5-4.5); Triglycerides 138 mg/dL (<150); Uric Acid 7.6 mg/dL (2.5-8.0)
[2022-11-15] MEDS: DOCUSATE SODIUM 100 MG CAPSULE PO SCH ×2 (08:31→21:38)
[2022-11-15] MEDS: LISINOPRIL 20 MG TABLET PO SCH (08:31)
[2022-11-15] MEDS: ENOXAPARIN 40 MG/0.4 ML SYRINGE SQ SCH (08:31)
[2022-11-15] MEDS: DEXAMETHASONE 4 MG TABLET PO SCH (08:33)
[2022-11-15] MEDS: CEFDINIR 300 MG CAPSULE PO SCH ×2 (08:34→21:30)
--- NOTE | 2022-11-15 09:23 | Internal Med Progress Note ---
SUBJECTIVE Subjective Patient information: Note initiated : 11/15/22 at 9:21 am Service Date, if different from initiated Date: [] Patient: Shiva Esparza 77 y/o F admitted on 11/11/22 for Back pain, SOB, Covid. Chief Complaint: [FTT] Principal diagnosis: T12 compression fracture, fall, hypoxemia, COVID-19 Interval history: The patient was resting in bed comfortably. She has not needing supplemental O2. She is awaiting placement to halfway facility from my understanding. Constitutional Vitals: Vital Signs Temp Pulse Resp BP Pulse Ox O2 Del Method O2 Flow Rate 97.6 F 64 20 120/63 98 Room Air 0 11/15/22 08:00 11/15/22 08:00 11/15/22 08:00 11/15/22 08:00 11/15/22 08:00 11/15/22 08:00 11/15/22 04:00 Period Temp Pulse Resp BP Sys/Manzano Pulse Ox O2 Del Method O2 Flow Rate Last 24 Hr 97.0 F-98.0 F 57-64 16-20 120-147/62-67 94-100 Room Air-Room Air 0-0 Intake and Output 11/14/22 11/15/22 11/15/22 19:59 03:59 11:59 Intake Total 500 350 Output Total 451 400 300 Balance 49 -400 50 Weight 80.331 kg Intake & Output: Intake & Output 11/14/22 11/15/22 11/15/22 19:59 03:59 11:59 Intake Total 500 350 Output Total 451 400 300 Balance 49 -400 50 Weight 80.331 kg Intake: Oral 500 350 Output: Void Amount 450 400 300 # of times incontinent of urine 1 Other: Meal Dinner Percent of Meal Consumed 75% Urine Appearance Clear Clear Clear Urine Color Bright Yellow Yellow Yellow Head Head exam: Present atraumatic and normal inspection Eye Eye exam: Present normal appearance ENT ENT exam: Present mucous membranes moist, normal exam and normal external ear exam Neck Neck exam: Present normal inspection Respiratory Respiratory exam: Present normal respiratory exam Cardiovascular Cardiovascular exam: Present normal rate and rhythm GI/Abdominal GI/Abdominal exam: Present normal bowel sounds Back Exam Back exam: Present normal inspection Neurological Exam Neurological exam: Present alert and oriented X3 Skin Skin exam: Present intact and warm OBJ DATA Labs 11/13/22 09:20 11/15/22 07:31 Labs: Abnormal Lab Results 11/15/22 11/13/22 11/13/22 07:31 09:20 09:20 Hct 48.9 H MCV 107.5 H MCH 34.5 H Neut % (Auto) 80.0 H Lymph % (Auto) 10.5 L Lymph # (Auto) 0.83 L Sodium Chloride BUN 30 H Glucose Uric Acid Calcium 8.4 L Direct Bilirubin GGT 74 H AST 41 H Lactate Dehydrogenase C-Reactive Protein Albumin 2.8 L Globulin Albumin/Globulin Ratio 0.9 L Procalcitonin 3.15 H 11/13/22 09:20 Hct MCV MCH Neut % (Auto) Lymph % (Auto) Lymph # (Auto) Sodium 132 L Chloride 95 L BUN 37 H Glucose 109 H Uric Acid 10.0 H Calcium Direct Bilirubin 0.3 H GGT 89 H AST 71 H Lactate Dehydrogenase 246 H C-Reactive Protein 2.10 H Albumin Globulin 4.0 H Albumin/Globulin Ratio 0.8 L Procalcitonin Meds: Medications Acetaminophen (Acetaminophen 325 Mg Tablet) 650 mg PO Q6HP PRN PRN Reason: PAIN/FEVER > 101 Last Admin: 11/14/22 13:49 Dose: 650 mg Hydrocodone Bitart/Acetaminophen (Hydrocodone/Apap 5/325mg Tablet) 1 - 2 tab PO Q4HP PRN PRN Reason: PAIN LEVEL 3-6 Last Admin: 11/15/22 08:31 Dose: 2 tab Albuterol/Ipratropium (Ipratropium/Albuterol 3 Ml Ampul.Neb) 3 ml NEB Q4HP PRN PRN Reason: Shortness Of Breath Dexamethasone (Dexamethasone 4 Mg Tablet) 6 mg PO DAILY [facility] Stop: 11/21/22 09:01 Last Admin: 11/15/22 08:33 Dose: 6 mg Diazepam (Diazepam 10 Mg Tablet) 10 mg PO TIDP PRN PRN Reason: leg cramps Last Admin: 11/15/22 02:46 Dose: 10 mg Docusate Sodium (Docusate Sodium 100 Mg Capsule) 100 mg PO BID [facility] Last Admin: 11/15/22 08:31 Dose: 100 mg Enoxaparin Sodium (Enoxaparin 40 Mg/0.4 Ml Syringe) 40 mg SQ DAILY [facility] Last Admin: 11/15/22 08:31 Dose: 40 mg Magnesium Sulfate (Magnesium Sulfate) 2 gm in 50 mls @ 50 mls/hr IV UD PRN PRN Reason: Magnesium </= 1.6 Potassium Chloride 40 meq/ (Dextrose) 520 mls @ 130 mls/hr IV UD PRN PRN Reason: Potassium < 3 REMDESIVIR 100 mg/ Sodium (Chloride) 250 mls @ 500 mls/hr IV Q24H [facility] Stop: 11/16/22 09:29 Last Infusion: 11/14/22 10:42 Dose: Infused Lidocaine (Lidocaine Patch) 1 patch TOPICAL DAILY@1000 [facility] Last Admin: 11/14/22 10:05 Dose: 1 patch Lisinopril (Lisinopril 20 Mg Tablet) 40 mg PO QDAY [facility] Last Admin: 11/15/22 08:31 Dose: 40 mg Methocarbamol (Methocarbamol 1,000 Mg/10 Ml Vial) 750 mg IV Q6HP PRN PRN Reason: Muscle Spasm Last Admin: 11/15/22 06:01 Dose: 750 mg Ondansetron HCl (Ondansetron 4 Mg/2 Ml Vial) 4 mg IV Q4HP PRN PRN Reason: Nausea And Vomiting Polyethylene Glycol (Polyethylene Glycol 3350 17 Gm Packet) 17 gm PO DAILYP PRN PRN Reason: Constipation Last Admin: 11/13/22 10:07 Dose: 17 gm Potassium Chloride (Potassium Chloride 20 Meq Tablet) 40 meq PO UD PRN PRN Reason: Potassium < 3 Potassium Chloride (Potassium Chloride 20 Meq Tablet) 40 meq PO UD PRN PRN Reason: Potssium is 3-3.5 Senna (Sennosides 1 Tablet) 2 tab PO DAILYP PRN PRN Reason: Constipation Last Admin: 11/13/22 09:50 Dose: 2 tab Sodium Chloride (0.9 % Sodium Chloride 10 Ml Syringe) 10 ml IV Q8 [facility] Last Admin: 11/15/22 06:00 Dose: 10 ml A/P Narrative A/P Narrative: A: *Acute hypoxic respiratory failure: -now on room air *Pneumonia (right side): -CTA on @[facility] showed no PE but right side pna -elevated PCT but improving *Covid (+): *COPD per imaging and smoking history: -pt denies subjective dyspnea on admit, thus likely chronically low *Tobacco abuse: *macrocytosis: b12/folate ok *CKD IIIb: *Volume depletion: IVF's today *HTN/HLD: *Chronic pain: *Anxiety: On diazepam *Acute T12 comp fracture: from recent fall *generalized weakness/deconditioning/inability to care for self P: -Antibiotics-> for 5 days total -Dexa/Rem -proning/oob to chair/mobilization -O2 Supp weaned off -IS/acapella, nebs, rt -Trend PCT -Follow-up CBC/CMP -Monitor I's and O's -Pain control including Lidoderm patch, norco, heating pad, TLSO brace -d/c home acei -Smoking cessation counseling -PT/OT -CM for placement -may need home o2, f/u with pulmonology for eval for copd -ppx: Lovenox Time Spent With Patient Time: Total time spent is greater than 50% in coordination of care (as documented) at patient's floor/unit and/or counseling patient: Subsequent: Total time with patient: 25 - 34 minutes QUALITY VTE Deep Vein Thrombosis/Pulmonary Embolism Present on Admission: No
[2022-11-15] MEDS: LIDOCAINE PATCH TOPICAL SCH (10:04)
[2022-11-15] MEDS: REMDESIVIR 100 MG in 0.9 % SODIUM CHLORIDE 250 ML IV SCH (10:06)
[2022-11-15] MEDS: METHOCARBAMOL 750 MG TABLET PO PRN ×2 (12:24→19:00)
[2022-11-16] MEDS: METHOCARBAMOL 750 MG TABLET PO PRN ×2 (03:05→09:24)
[2022-11-16] MEDS: HYDROcodone/APAP 5/325MG TABLET PO PRN ×3 (03:05→13:12)
[2022-11-16] MEDS: 0.9 % SODIUM CHLORIDE 10 ML SYRINGE IV SCH ×2 (06:15→12:50)
--- NOTE | 2022-11-16 06:21 | Internal Med Progress Note ---
SUBJECTIVE Subjective Patient information: Note initiated : 11/16/22 at 6:19 am Service Date, if different from initiated Date: [] Patient: Shiva Esparza 77 y/o F admitted on 11/11/22 for Back pain, SOB, Covid. Chief Complaint: [] Principal diagnosis: T12 compression fracture, fall, hypoxemia, COVID-19 Interval history: No active complaints or concerns besides ongoing back pain. Currently working on obtaining TLSO brace. Constitutional Vitals: Vital Signs Temp Pulse Resp BP Pulse Ox O2 Del Method O2 Flow Rate 97.0 F 73 20 168/72 99 Room Air 0 11/16/22 02:55 11/16/22 02:55 11/16/22 02:55 11/16/22 02:55 11/16/22 02:55 11/16/22 02:55 11/15/22 04:00 Period Temp Pulse Resp BP Sys/Manzano Pulse Ox O2 Del Method O2 Flow Rate Last 24 Hr 96.9 F-97.6 F 56-73 18-20 120-168/55-72 97-99 Room Air-Room Air Intake and Output 11/15/22 11/16/22 11/16/22 19:59 03:59 11:59 Intake Total 250 300 Output Total 2 426 Balance 248 -126 Weight 72.439 kg Intake & Output: Intake & Output 11/15/22 11/16/22 11/16/22 19:59 03:59 11:59 Intake Total 250 300 Output Total 2 426 Balance 248 -126 Weight 72.439 kg Intake: Oral 250 300 Output: Void Amount 425 # of times incontinent of urine 2 1 Other: Urine Appearance Clear Urine Color Yellow Head Head exam: Present atraumatic and normal inspection Eye Eye exam: Present normal appearance ENT ENT exam: Present mucous membranes moist, normal exam and normal external ear exam Neck Neck exam: Present normal inspection Respiratory Respiratory exam: Present normal respiratory exam Cardiovascular Cardiovascular exam: Present normal rate and rhythm GI/Abdominal GI/Abdominal exam: Present normal bowel sounds Back Exam Back exam: Present normal inspection Neurological Exam Neurological exam: Present alert and oriented X3 Skin Skin exam: Present intact and warm OBJ DATA Labs 11/13/22 09:20 11/15/22 07:31 Labs: Abnormal Lab Results 11/15/22 11/13/22 11/13/22 07:31 09:20 09:20 Hct 48.9 H MCV 107.5 H MCH 34.5 H Neut % (Auto) 80.0 H Lymph % (Auto) 10.5 L Lymph # (Auto) 0.83 L Sodium Chloride BUN 30 H Glucose Uric Acid Calcium 8.4 L Direct Bilirubin GGT 74 H AST 41 H Lactate Dehydrogenase C-Reactive Protein Albumin 2.8 L Globulin Albumin/Globulin Ratio 0.9 L Procalcitonin 3.15 H 11/13/22 09:20 Hct MCV MCH Neut % (Auto) Lymph % (Auto) Lymph # (Auto) Sodium 132 L Chloride 95 L BUN 37 H Glucose 109 H Uric Acid 10.0 H Calcium Direct Bilirubin 0.3 H GGT 89 H AST 71 H Lactate Dehydrogenase 246 H C-Reactive Protein 2.10 H Albumin Globulin 4.0 H Albumin/Globulin Ratio 0.8 L Procalcitonin Meds: Medications Acetaminophen (Acetaminophen 325 Mg Tablet) 650 mg PO Q6HP PRN PRN Reason: PAIN/FEVER > 101 Last Admin: 11/14/22 13:49 Dose: 650 mg Hydrocodone Bitart/Acetaminophen (Hydrocodone/Apap 5/325mg Tablet) 1 - 2 tab PO Q4HP PRN PRN Reason: PAIN LEVEL 3-6 Last Admin: 11/16/22 03:05 Dose: 2 tab Albuterol/Ipratropium (Ipratropium/Albuterol 3 Ml Ampul.Neb) 3 ml NEB Q4HP PRN PRN Reason: Shortness Of Breath Dexamethasone (Dexamethasone 4 Mg Tablet) 6 mg PO DAILY [facility] Stop: 11/21/22 09:01 Last Admin: 11/15/22 08:33 Dose: 6 mg Diazepam (Diazepam 10 Mg Tablet) 10 mg PO TIDP PRN PRN Reason: leg cramps Last Admin: 11/15/22 21:38 Dose: 10 mg Docusate Sodium (Docusate Sodium 100 Mg Capsule) 100 mg PO BID [facility] Last Admin: 11/15/22 21:38 Dose: 100 mg Enoxaparin Sodium (Enoxaparin 40 Mg/0.4 Ml Syringe) 40 mg SQ DAILY [facility] Last Admin: 11/15/22 08:31 Dose: 40 mg Magnesium Sulfate (Magnesium Sulfate) 2 gm in 50 mls @ 50 mls/hr IV UD PRN PRN Reason: Magnesium </= 1.6 Potassium Chloride 40 meq/ (Dextrose) 520 mls @ 130 mls/hr IV UD PRN PRN Reason: Potassium < 3 REMDESIVIR 100 mg/ Sodium (Chloride) 250 mls @ 500 mls/hr IV Q24H [facility] Stop: 11/16/22 09:29 Last Infusion: 11/15/22 11:21 Dose: Infused Lidocaine (Lidocaine Patch) 1 patch TOPICAL DAILY@1000 [facility] Last Admin: 11/15/22 10:04 Dose: 1 patch Methocarbamol (Methocarbamol 750 Mg Tablet) 750 mg PO Q6HP PRN PRN Reason: Muscle Spasm Last Admin: 11/16/22 03:05 Dose: 750 mg Ondansetron HCl (Ondansetron 4 Mg/2 Ml Vial) 4 mg IV Q4HP PRN PRN Reason: Nausea And Vomiting Polyethylene Glycol (Polyethylene Glycol 3350 17 Gm Packet) 17 gm PO DAILYP PRN PRN Reason: Constipation Last Admin: 11/13/22 10:07 Dose: 17 gm Potassium Chloride (Potassium Chloride 20 Meq Tablet) 40 meq PO UD PRN PRN Reason: Potassium < 3 Potassium Chloride (Potassium Chloride 20 Meq Tablet) 40 meq PO UD PRN PRN Reason: Potssium is 3-3.5 Senna (Sennosides 1 Tablet) 2 tab PO DAILYP PRN PRN Reason: Constipation Last Admin: 11/13/22 09:50 Dose: 2 tab Sodium Chloride (0.9 % Sodium Chloride 10 Ml Syringe) 10 ml IV Q8 [facility] Last Admin: 11/15/22 21:42 Dose: 10 ml A/P Narrative A/P Narrative: A: *Acute hypoxic respiratory failure: -now on room air *Pneumonia (right side): -CTA on @[facility] showed no PE but right side pna -elevated PCT but improving *Covid (+): *COPD per imaging and smoking history: -pt denies subjective dyspnea on admit, thus likely chronically low *Tobacco abuse: *macrocytosis: b12/folate ok *CKD IIIb: *Volume depletion: IVF's today *HTN/HLD: *Chronic pain: *Anxiety: On diazepam *Acute T12 comp fracture: from recent fall *generalized weakness/deconditioning/inability to care for self P: -Ortho stated oncall does not deal with spine-> will continue to work on options for TLSO brace -Antibiotics-> for 5 days total -Dexa/Rem -proning/oob to chair/mobilization -O2 Supp weaned off -IS/acapella, nebs, rt -Trend PCT -Follow-up CBC/CMP -Monitor I's and O's -Pain control including Lidoderm patch, norco, heating pad, TLSO brace -d/c home acei -Smoking cessation counseling -PT/OT -CM for placement-> ?swing -may need home o2, f/u with pulmonology for eval for copd -ppx: Lovenox Time Spent With Patient Time: Total time spent is greater than 50% in coordination of care (as documented) at patient's floor/unit and/or counseling patient: Subsequent: Total time with patient: 25 - 34 minutes QUALITY VTE Deep Vein Thrombosis/Pulmonary Embolism Present on Admission: No
[2022-11-16] MEDS: DEXAMETHASONE 4 MG TABLET PO SCH (09:02)
[2022-11-16] MEDS: REMDESIVIR 100 MG in 0.9 % SODIUM CHLORIDE 250 ML IV SCH (09:02)
[2022-11-16] MEDS: DOCUSATE SODIUM 100 MG CAPSULE PO SCH (09:02)
[2022-11-16] MEDS: ENOXAPARIN 40 MG/0.4 ML SYRINGE SQ SCH (09:02)
[2022-11-16] MEDS: CEFDINIR 300 MG CAPSULE PO SCH (09:02)
[2022-11-16] MEDS: LIDOCAINE PATCH TOPICAL SCH (09:25)
--- NOTE | 2022-11-16 13:33 | Discharge Summary ---
Discharge Provider Provider IMPORTANT FOLLOW-UP INFORMATION FOR PCP: Patient information: Note initiated : 11/16/22 at 1:31 pm Service Date, if different from initiated Date: [] Patient: Shiva Esparza a 77 y/o F admitted on 11/11/22 for Back pain, SOB, Covid. Chief Complaint: [] Date of admission: 11/11/22 21:41 Discharge date: 11/16/22 Primary care physician: Harrison Rubin Consults: 11/11/22 Consult to Physician [CONS] Stat Comment: Consulting Provider: Sushil Gee Reason For Exam: Physician to Consult 11/16/22 09:51 Consult to Physician [CONS] Routine Comment: T12 and L1 compression fractures Consulting Provider: Sánchez Pillai Reason For Exam: Physician to Consult Attending physician on discharge: Denisse Dempseyhas COURSE Hospital Course Hospital course: Interval history: History of present illness: Ms. Esparza is a 77 year old F Presents the ED for back pain and weakness and her unable to care for her. Beginning of the week she fell and was seen over at [facility] where she had work-up and found to have a acute compression fracture of T12. She also was found to be hypoxic and had a CTA of the chest which showed no PE but did show infiltrate right lung described as mild patchy groundglass and will treat right middle lobe and right upper lobe. Also noted was moderate emphysema disease throughout. We do not have any medication list on file but she says she takes hydrochlorothiazide and a cholesterol medication has a history of postpolio syndrome chronic pain hypertension hyperlipidemia. Patient states she does not feel short of breath and does not have a cough. She has not gained any weight including water weight or edema lately. Denies feeling wheezy. Since her original fall she is had subsequent falls and her cannot take care of her. In the ED she was mildly tachycardic. She had elevated procalcitonin of 6.4. 11/12 Patient feeling better. Denies any significant cough and no shortness of breath. Leukopenia noted. Macrocytosis. Was found to be COVID-positive on testing. Started on remdesivir and dexamethasone. Requiring oxygen supplementation. 11/13 Patient complains of low back pain. Desires heating pad and will also prescribed TLSO for when she is moving around. On several liters of oxygen overnight but good sats will trial on room air today. 11/14 Patient doing well. On room air. Patient feeling better. No overnight event or new complaints. Back pain seems to be doing a little better today. 11/15: I took over the care of this patient at which point she was medically optimized for discharge 11/16: The patient was discharged to swing bed while she awaits transfer to intermediate facility. Discharge diagnosis: Acute hypoxemic respiratory failure, pneumonia, COVID-19 Time Spent with Patient Time attestation: Total time spent providing and/or coordinating discharge services: Time spent: Greater than 30 minutes EXAM Constitutional Vitals: Temp Pulse Resp BP Pulse Ox O2 Del Method O2 Flow Rate 98.1 F 62 20 153/88 94 Room Air 0 11/16/22 12:11/16/22 12:11/16/22 12:11/16/22 12:11/16/22 12:11/16/22 12:11/15/22 04:00 General appearance: average body habitus Head Head exam: Present atraumatic, normal inspection and normocephalic Eye Eye exam: Present EOMI, normal appearance and PERRL; Absent conjunctival injection ENT ENT exam: Present normal exam; Absent mucous membranes dry Neck Neck exam: Present full ROM; Absent lymphadenopathy Respiratory Respiratory exam: Present normal respiratory exam and CTAB; Absent decreased breath sounds, respiratory distress or wheezes Cardiovascular Cardiovascular exam: Present normal rate and rhythm and RRR; Absent JVD GI/Abdominal GI/Abdominal exam: Present normal bowel sounds and soft; Absent diminished bowel sounds, distended, guarding, mass, rebound or tenderness Neurological Exam Neurological exam: Present alert, CN II-XII intact and oriented X3 Psychiatric Psychiatric exam: Present normal affect and normal mood Skin Skin exam: Present intact and warm; Absent erythema, pallor, petechiae or rash Discharge Data Data Completed and Pending Labs on day of discharge: Preliminary micro results at discharge 11/11/22 22:10 Blood Culture - Preliminary Blood 11/11/22 22:00 Blood Culture - Preliminary Blood Discharge Plan Patient/Caregiver Discharge Instructions Activity: increase activity as tolerated Diet: Regular Diet Activity Restrictions/Additional Instructions: TLSO brace. Prescriptions: New lidocaine 5 % Adhesive Patch,Medicated 1 patch topical DAILY@1000 Qty: 7 0RF methocarbamol 500 mg tablet 500 mg PO TID PRN (Reason: spasm/pain) Qty: 20 0RF Continued diazepam 10 mg tablet 10 mg PO TIDP PRN (Reason: leg cramps) hydrocodone-acetaminophen 10-325 mg tablet 1 tab PO Q6HP PRN (Reason: Back Pain) lisinopril 40 mg tablet 40 mg PO QDAY Other Ambulatory Orders: Brace/Splint (ONCE) Location: None Selected Ordered By: Sushil Gee Follow Up Plan Follow up with: Harrison Rubin DO [Primary Care Provider] - Patient Disposition: Xfer SNF Prognosis: Fair Rehab Potential: Fair I certify that the patient requires SNF services: Yes Overall status at discharge: patient is progressing back to baseline QUALITY VTE Deep Vein Thrombosis/Pulmonary Embolism Present on Admission: No
== END 2022-11-16 13:25 | disposition swing bed (61) | DRG 189 ==
LOC: ED 17:41 → ICU 21:41
PROVIDERS: ADMIT Internal Medicine; ATTEND Student in an Organized Health Care Education/Training Program

== ENCOUNTER 2022-12-20 04:33 | Inpatient (IN) ==
[2022-12-20 05:09] LABS: POC Calcium, Ionized 1.07 (1.16-1.32); POC Creatinine 1.2 (0.6-1.2); POC Potassium 3.7 (3.3-5.1)
[2022-12-20] MEDS ORDERED: HYDROcodone/APAP 10/325MG TABLET PO ONE ×2 (05:15→06:24)
[2022-12-20] MEDS ORDERED: HYDROcodone/APAP 5/325MG TABLET PO ONE ×2 (05:19→08:26)
[2022-12-20 05:43] LABS: POC Calcium, Ionized 1.07 (1.16-1.32); POC Creatinine 1.1 (0.6-1.2); POC Potassium 3.7 (3.3-5.1)
--- NOTE | 2022-12-20 06:22 | Emergency Department Note ---
Fall HPI General Chief Complaint: Fall Stated Complaint: fall Time Seen by Provider: 12/20/22 04:46 Source: patient Mode of arrival: EMS History of Present Illness HPI Narrative: Narrative: This 77-year-old female states that she slipped on her wooden floors tonight and landed forward and on her left side. She states she struck her head but did not have any loss of consciousness she remembers hitting the floor and had a difficult time getting up. She complains of pain to her left hip as well as the left temporal side of her head. She denies any dizziness nausea ataxia or obtundation. Patient's past medical history includes a fractured vertebra from another such fall COPD chronic kidney disease hypertension. Related Data Home Medications Medication Instructions Recorded Confirmed diazepam 10 mg tablet 10 mg PO TIDP PRN leg cramps 11/12/22 11/16/22 lisinopril 40 mg tablet 40 mg PO QDAY 11/12/22 11/16/22 Previous Rx's Medication Instructions Recorded lidocaine 5 % topical patch 1 patch topical DAILY@1000 #7 ea 11/13/22 methocarbamol 500 mg tablet 500 mg PO TID PRN spasm/pain #20 11/13/22 tabs hydrocodone 10 mg-acetaminophen 1 tab PO Q6HP PRN Back Pain #20 11/22/22 325 mg tablet tabs Allergies Allergy/AdvReac Type Severity Reaction Status Date / Time Morpholine Analogues Allergy Severe Anaphylaxis Verified 11/15/22 17:55 aspirin [From Percodan] Allergy Unknown Unknown Verified 11/15/22 17:55 midazolam [From Versed] Allergy Unknown Unknown Verified 11/15/22 17:55 oxycodone [From Percodan] Allergy Unknown Unknown Verified 11/15/22 17:55 Penicillins Allergy Unknown Unknown Verified 11/15/22 17:55 Phenothiazines Allergy Unknown Unknown Verified 11/15/22 17:55 prochlorperazine Allergy Unknown Unknown Verified 11/15/22 17:55 [From Compazine] Review of Systems ROS ROS Narrative: Narrative: All systems ED: reviewed and negative except as stated. [facility] Narrative Patient History Narrative: Narrative: Medical/Surgical/Family History All Active Problems (Updated 11/21/22 @ 09:24 by Jordan Meyer MD) Chronic back pain (Acute) COPD (chronic obstructive pulmonary disease) (Acute) COVID (Acute) Mixed dyslipidemia (Acute) Essential hypertension (Acute) Chronic kidney disease, stage III (moderate) (Acute) Pneumonia involving right lung (Acute) Closed compression fracture of lumbar vertebra (Acute) Hypoxia (Acute) Tobacco abuse (Acute) Obesity (BMI 30.0-34.9) (Acute) Medication side effect (Acute) Left against medical advice (Acute) T12 compression fracture (Acute) Acute exacerbation of chronic obstructive pulmonary disease (Acute) Acute respiratory failure with hypoxemia (Acute) Social History Smoking Status: Current some day smoker Exam Narrative Narrative: Narrative: General alert and oriented x3 patient's in no acute distress answers questions cogently. Skin: Ecchymosis around left orbital ridge. No stairstep lesions. No raccoon eyes longoria signs or hemotympanums. Neck: Nontender moving spontaneously nontender to both dorsal and lateral compression. Ortho: Patient has decreased range of motion of the left hip otherwise has full range of motion of all joints and no deformity was seen. Pelvis is tender to compression chest is not. Neuro: GCS equals 15. NIH stroke scale equals 0 pupils equal round reactive and accommodating extraocular movements are intact without nystagmus patient has no lateralizing sensory or motor deficits. Course Vital Signs Vital signs: Vital Signs Temperature 98.0 F 12/20/22 04:34 Pulse Rate 91 H 12/20/22 04:34 Respiratory Rate 17 12/20/22 04:34 Blood Pressure 163/67 12/20/22 04:34 Pulse Oximetry (%) 91 12/20/22 04:34 Oxygen Delivery Method Room Air 12/20/22 04:34 Temperature 98.0 F 12/20/22 04:34 Pulse Rate 84 12/20/22 05:42 Respiratory Rate 17 12/20/22 04:34 Blood Pressure 125/63 12/20/22 07:01 Pulse Oximetry (%) 91 12/20/22 05:42 Oxygen Delivery Method Room Air 12/20/22 04:34 MDM MDM Narrative Medical decision making narrative: Narrative: CT scan of the head and neck and pelvis were obtained but not back at the time of change of shift. Chest x-ray showed mild CHF and an ectatic aorta as read by me.. Blood work showed no abnormalitiy. Sepsis Sepsis Identified: No Lab Data 12/20/22 05:50 12/20/22 05:50 Labs: Lab Results 12/20/22 12/20/22 12/20/22 Range/Units 05:05 05:38 05:38 WBC (4.5-11.0) K/mcL RBC (3.59-5.38) M/mcL Hgb (11.2-15.7) g/dL Hct (34.1-44.9) % POC Hct 45.0 45.0 (36-48) MCV (80.0-100.0) fL MCH (26.0-34.0) pg MCHC (31.0-36.0) g/dL RDW (11.5-14.5) % Plt Count (140-440) K/mcL MPV (8.8-12.5) fL Immature Gran % (Auto) (0.0-0.5) % Neut % (Auto) (38.0-78.0) % Lymph % (Auto) (15.5-49.0) % [place] % (Auto) (1.0-12.0) % Eos % (Auto) (0.0-7.0) % Baso % (Auto) (0.0-2.0) % Lymph # (Auto) (1.50-4.80) K/mcL [place] # (Auto) (0.10-0.90) K/mcL Eos # (Auto) (0.00-0.70) K/mcL Baso # (Auto) (0.00-0.30) K/mcL Immature Gran # (0.00-0.05) K/mcl Absolute Neutrophils (1.80-8.00) K/mcL POC Sodium 137 137 (133-145) Sodium (133-145) mmol/L POC Potassium 3.7 3.7 (3.3-5.1) Potassium (3.3-5.1) mmol/L POC Chloride 96 99 (96-108) Chloride (96-108) mmol/L Carbon Dioxide (22-30) mmol/L POC Total CO2 29.0 28.0 (22-30) Anion Gap (8.0-16.0) POC BUN 15 15 (6-20) BUN (8-23) mg/dL Creatinine (0.6-1.1) mg/dL POC Creatinine 1.2 1.1 (0.6-1.2) GFR Calculation Glucose (70-105) mg/dL POC Glucose 111 H 123 H (70-105) Calcium (8.6-10.4) mg/dL POC WB Ioniz Calcium 1.07 L 1.07 L (1.16-1.32) Total Bilirubin (0.1-1.0) mg/dL AST (<32) U/L ALT (<40) U/L Alkaline Phosphatase (39-117) U/L Total Protein (5.9-8.4) gm/dL Albumin (3.2-5.2) gm/dL Globulin (2.2-3.7) gm/dL Albumin/Globulin Ratio (1.0-2.3) POC Troponin I < 0.02 (0.00-0.08) 12/20/22 12/20/22 12/20/22 Range/Units 05:48 05:50 05:50 WBC 9.1 (4.5-11.0) K/mcL RBC 4.12 (3.59-5.38) M/mcL Hgb 14.3 (11.2-15.7) g/dL Hct 43.1 (34.1-44.9) % POC Hct (36-48) MCV 104.6 H (80.0-100.0) fL MCH 34.7 H (26.0-34.0) pg MCHC 33.2 (31.0-36.0) g/dL RDW 14.6 H (11.5-14.5) % Plt Count 280 (140-440) K/mcL MPV 11.0 (8.8-12.5) fL Immature Gran % (Auto) 0.4 (0.0-0.5) % Neut % (Auto) 66.3 (38.0-78.0) % Lymph % (Auto) 21.7 (15.5-49.0) % [place] % (Auto) 9.0 (1.0-12.0) % Eos % (Auto) 2.3 (0.0-7.0) % Baso % (Auto) 0.3 (0.0-2.0) % Lymph # (Auto) 1.98 (1.50-4.80) K/mcL [place] # (Auto) 0.82 (0.10-0.90) K/mcL Eos # (Auto) 0.21 (0.00-0.70) K/mcL Baso # (Auto) 0.03 (0.00-0.30) K/mcL Immature Gran # 0.04 (0.00-0.05) K/mcl Absolute Neutrophils 6.06 (1.80-8.00) K/mcL POC Sodium (133-145) Sodium 134 (133-145) mmol/L POC Potassium (3.3-5.1) Potassium 3.6 (3.3-5.1) mmol/L POC Chloride (96-108) Chloride 96 (96-108) mmol/L Carbon Dioxide 27 (22-30) mmol/L POC Total CO2 (22-30) Anion Gap 11.0 (8.0-16.0) POC BUN (6-20) BUN 14 (8-23) mg/dL Creatinine 1.1 (0.6-1.1) mg/dL POC Creatinine (0.6-1.2) GFR Calculation 48 Glucose 103 (70-105) mg/dL POC Glucose (70-105) Calcium 8.4 L (8.6-10.4) mg/dL POC WB Ioniz Calcium (1.16-1.32) Total Bilirubin 0.6 (0.1-1.0) mg/dL AST 26 (<32) U/L ALT 15 (<40) U/L Alkaline Phosphatase 143 H (39-117) U/L Total Protein 7.1 (5.9-8.4) gm/dL Albumin 3.2 (3.2-5.2) gm/dL Globulin 3.9 H (2.2-3.7) gm/dL Albumin/Globulin Ratio 0.8 L (1.0-2.3) POC Troponin I < 0.02 (0.00-0.08) Discharge Plan Patient/Caregiver Discharge Instructions Pt seen by ENVIRONMENTAL SAMPLER/PA only: No Patient Disposition: Still a Patient Condition: Undetermined Follow up with: Harrison Rubin DO [Primary Care Provider] - Prescriptions: No Action diazepam 10 mg tablet 10 mg PO TIDP PRN (Reason: leg cramps) lisinopril 40 mg tablet 40 mg PO QDAY lidocaine 5 % Adhesive Patch,Medicated 1 patch topical DAILY@1000 Qty: 7 0RF methocarbamol 500 mg tablet 500 mg PO TID PRN (Reason: spasm/pain) Qty: 20 0RF hydrocodone-acetaminophen 10-325 mg tablet 1 tab PO Q6HP PRN (Reason: Back Pain) Qty: 20 0RF
[2022-12-20] MEDS ORDERED: DIAZEPAM 10 MG/2 ML SYRINGE IV ONE (06:32)
[2022-12-20 06:52] LABS: Basophils # (Auto) 0.03 K/mcL (0.00-0.30); Basophils % (Auto) 0.3 % (0.0-2.0); Eosinophils # (Auto) 0.21 K/mcL (0.00-0.70); Eosinophils % (Auto) 2.3 % (0.0-7.0); Hematocrit 43.1 % (34.1-44.9); Hemoglobin 14.3 g/dL (11.2-15.7); Lymphocytes # (Auto) 1.98 K/mcL (1.50-4.80); Lymphocytes % (Auto) 21.7 % (15.5-49.0); Mean Cell Volume 104.6 fL (80.0-100.0); Mean Corpuscular HGB Conc 33.2 g/dL (31.0-36.0); Monocytes # (Auto) 0.82 K/mcL (0.10-0.90); Neutrophils % (Auto) 66.3 % (38.0-78.0); Platelet Count 280 K/mcL (140-440); RBC 4.12 M/mcL (3.59-5.38); Red Cell Distribution Width 14.6 % (11.5-14.5); WBC 9.1 K/mcL (4.5-11.0)
--- NOTE | 2022-12-20 07:02 | EKG ---
[facility] Test Date: 2022-12-20 Pat Name: Shiva Esparza Department: ED Room: Gender: Female [employer]ile [employer] Coach: SE : 1945 Requested By: Harrison Gibson Order Number: [id number] Reading MD: Jony Gibson Measurements Intervals [place] Rate: 84 P: 56 DC: 171 QRS: 31 QRSD: 86 T: 43 QT: 389 QTc: 460 Interpretive Statements Sinus rhythm Abnormal R-wave progression, early transition artifact Electronically Signed On 12-20-2022 7:02:12 PST by Jony Gibson /store/M0/[id number]
[2022-12-20 07:05] LABS: ALT/SGPT 15 U/L (<40); AST/SGOT 26 U/L (<32); Albumin 3.2 gm/dL (3.2-5.2); Albumin/Globulin Ratio 0.8 (1.0-2.3); Alkaline Phosphatase 143 U/L (39-117); Bilirubin,Total 0.6 mg/dL (0.1-1.0); Blood Urea Nitrogen 14 mg/dL (8-23); Calcium 8.4 mg/dL (8.6-10.4); Carbon Dioxide 27 mmol/L (22-30); Chloride 96 mmol/L (96-108); Globulin 3.9 gm/dL (2.2-3.7); Glomerular Filtration Rate 48; Glucose 103 mg/dL (70-105)
--- NOTE | 2022-12-20 07:35 | Emergency Department Note ---
Course Course Course Narrative: Patient is a 77-year-old female with a history of COPD, CKD 3, and recent T12 compression fracture after fall who presents to the emergency department due to fall. Patient was signed out to me by Dr. Gibson and at that time CT reads were pending. Vital Signs Vital signs: Vital Signs Temperature 98.0 F 12/20/22 04:34 Pulse Rate 91 H 12/20/22 04:34 Respiratory Rate 17 12/20/22 04:34 Blood Pressure 163/67 12/20/22 04:34 Pulse Oximetry (%) 91 12/20/22 04:34 Oxygen Delivery Method Room Air 12/20/22 04:34 Temperature 98.0 F 12/20/22 04:34 Pulse Rate 74 12/20/22 11:01 Respiratory Rate 17 12/20/22 04:34 Blood Pressure 107/51 12/20/22 11:01 Pulse Oximetry (%) 93 12/20/22 10:33 Oxygen Delivery Method Nasal Cannula 12/20/22 08:27 Oxygen Flow Rate (L/min) 2 12/20/22 08:27 MDM MDM Narrative Medical decision making narrative: Narrative: Patient is a 77-year-old female who presents to the emergency department due to fall and left hip pain. Patient's CT pelvis demonstrates a left acute nondispla emma femoral neck transcervical fracture. I have spoken to patient about this finding. We will speak to orthopedics to discuss patient. I have spoken to Dr. Winslow who stated that he would be able to perform her surgery this afternoon. He requested hospitalist admission. I have spoken to Dr. Nobles regarding admission and he is agreed to see and evaluate this patient for this reason. Lab Data 12/20/22 05:50 12/20/22 05:50 Labs: Lab Results 12/20/22 12/20/22 12/20/22 Range/Units 05:05 05:38 05:38 WBC (4.5-11.0) K/mcL RBC (3.59-5.38) M/mcL Hgb (11.2-15.7) g/dL Hct (34.1-44.9) % POC Hct 45.0 45.0 (36-48) MCV (80.0-100.0) fL MCH (26.0-34.0) pg MCHC (31.0-36.0) g/dL RDW (11.5-14.5) % Plt Count (140-440) K/mcL MPV (8.8-12.5) fL Immature Gran % (Auto) (0.0-0.5) % Neut % (Auto) (38.0-78.0) % Lymph % (Auto) (15.5-49.0) % [place] % (Auto) (1.0-12.0) % Eos % (Auto) (0.0-7.0) % Baso % (Auto) (0.0-2.0) % Lymph # (Auto) (1.50-4.80) K/mcL [place] # (Auto) (0.10-0.90) K/mcL Eos # (Auto) (0.00-0.70) K/mcL Baso # (Auto) (0.00-0.30) K/mcL Immature Gran # (0.00-0.05) K/mcl Absolute Neutrophils (1.80-8.00) K/mcL POC Sodium 137 137 (133-145) Sodium (133-145) mmol/L POC Potassium 3.7 3.7 (3.3-5.1) Potassium (3.3-5.1) mmol/L POC Chloride 96 99 (96-108) Chloride (96-108) mmol/L Carbon Dioxide (22-30) mmol/L POC Total CO2 29.0 28.0 (22-30) Anion Gap (8.0-16.0) POC BUN 15 15 (6-20) BUN (8-23) mg/dL Creatinine (0.6-1.1) mg/dL POC Creatinine 1.2 1.1 (0.6-1.2) GFR Calculation Glucose (70-105) mg/dL POC Glucose 111 H 123 H (70-105) Calcium (8.6-10.4) mg/dL POC WB Ioniz Calcium 1.07 L 1.07 L (1.16-1.32) Total Bilirubin (0.1-1.0) mg/dL AST (<32) U/L ALT (<40) U/L Alkaline Phosphatase (39-117) U/L Total Protein (5.9-8.4) gm/dL Albumin (3.2-5.2) gm/dL Globulin (2.2-3.7) gm/dL Albumin/Globulin Ratio (1.0-2.3) POC Troponin I < 0.02 (0.00-0.08) 12/20/22 12/20/22 12/20/22 Range/Units 05:48 05:50 05:50 WBC 9.1 (4.5-11.0) K/mcL RBC 4.12 (3.59-5.38) M/mcL Hgb 14.3 (11.2-15.7) g/dL Hct 43.1 (34.1-44.9) % POC Hct (36-48) MCV 104.6 H (80.0-100.0) fL MCH 34.7 H (26.0-34.0) pg MCHC 33.2 (31.0-36.0) g/dL RDW 14.6 H (11.5-14.5) % Plt Count 280 (140-440) K/mcL MPV 11.0 (8.8-12.5) fL Immature Gran % (Auto) 0.4 (0.0-0.5) % Neut % (Auto) 66.3 (38.0-78.0) % Lymph % (Auto) 21.7 (15.5-49.0) % [place] % (Auto) 9.0 (1.0-12.0) % Eos % (Auto) 2.3 (0.0-7.0) % Baso % (Auto) 0.3 (0.0-2.0) % Lymph # (Auto) 1.98 (1.50-4.80) K/mcL [place] # (Auto) 0.82 (0.10-0.90) K/mcL Eos # (Auto) 0.21 (0.00-0.70) K/mcL Baso # (Auto) 0.03 (0.00-0.30) K/mcL Immature Gran # 0.04 (0.00-0.05) K/mcl Absolute Neutrophils 6.06 (1.80-8.00) K/mcL POC Sodium (133-145) Sodium 134 (133-145) mmol/L POC Potassium (3.3-5.1) Potassium 3.6 (3.3-5.1) mmol/L POC Chloride (96-108) Chloride 96 (96-108) mmol/L Carbon Dioxide 27 (22-30) mmol/L POC Total CO2 (22-30) Anion Gap 11.0 (8.0-16.0) POC BUN (6-20) BUN 14 (8-23) mg/dL Creatinine 1.1 (0.6-1.1) mg/dL POC Creatinine (0.6-1.2) GFR Calculation 48 Glucose 103 (70-105) mg/dL POC Glucose (70-105) Calcium 8.4 L (8.6-10.4) mg/dL POC WB Ioniz Calcium (1.16-1.32) Total Bilirubin 0.6 (0.1-1.0) mg/dL AST 26 (<32) U/L ALT 15 (<40) U/L Alkaline Phosphatase 143 H (39-117) U/L Total Protein 7.1 (5.9-8.4) gm/dL Albumin 3.2 (3.2-5.2) gm/dL Globulin 3.9 H (2.2-3.7) gm/dL Albumin/Globulin Ratio 0.8 L (1.0-2.3) POC Troponin I < 0.02 (0.00-0.08) Discharge Plan Patient/Caregiver Discharge Instructions Pt seen by RUBBING BED OPERATOR/PA only: No Clinical Impression: Closed hip fracture Patient Disposition: Xfer As Inpt ([facility]) Condition: Undetermined Follow up with: Harrison Rubin DO [Primary Care Provider] - Prescriptions: No Action diazepam 10 mg tablet 10 mg PO TIDP PRN (Reason: leg cramps) lisinopril 40 mg tablet 40 mg PO QDAY lidocaine 5 % Adhesive Patch,Medicated 1 patch topical DAILY@1000 Qty: 7 0RF methocarbamol 500 mg tablet 500 mg PO TID PRN (Reason: spasm/pain) Qty: 20 0RF hydrocodone-acetaminophen 10-325 mg tablet 1 tab PO Q6HP PRN (Reason: Back Pain) Qty: 20 0RF
--- NOTE | 2022-12-20 09:25 | Cat Scan Report ---
CLINICAL INFORMATION: Trauma-fall COMPARISON: 11/08/2022 TECHNIQUE: 2.5 mm helical slices were obtained in the skull base to vertex. Following reconstruction, axial reformatted images were reviewed at bone and parenchymal windows. The exam was performed using radiation dose optimization techniques including, but not limited to, automated exposure control, adjustment of the mA and/or kV according to patient size and use of iterative reconstruction technique. FINDINGS: The ventricles, sulci, fissures, and cisterns are symmetrically enlarged compatible with mild age-related atrophy. No extra-axial fluid collections are identified. Mild patchy chronic ischemic changes, in the deep cerebral white matter, are expected for age. There is no hemorrhage, mass effect, or edema. Bone windows show no fracture. There is a 2.1 cm radiolucent lesion in the thigh below the left frontal calvarium near vertex and appears to partially erode the outer table. IMPRESSION: Mild atrophy and chronic ischemic changes in the deep cerebral white matter-expected for age. No intracerebral hemorrhage or other acute posttraumatic change 2 cm radiolucent lesion in the left frontal calvarium near vertex. Please correlate with point tenderness in this region. This could potentially represent a osteolytic lesion. Consider bone scan Interpreted and Authenticated by: Valerio Calvo 12/20/22
--- NOTE | 2022-12-20 09:27 | XRay Report ---
CLINICAL INFORMATION: Trauma. History of smoking COMPARISON: 11/11/2022 TECHNIQUE: Portable FINDINGS: Rotated film shows moderate stable cardiomegaly. Mild ectasia of thoracic aorta is stable. Mediastinum and pulmonary vessels are otherwise normal. COPD changes noted. No infiltrates or acute pulmonary abnormalities. Pleural spaces are normal. IMPRESSION: No trauma or acute cardiopulmonary disease. COPD Interpreted and Authenticated by: Valerio Calvo 12/20/22
--- NOTE | 2022-12-20 09:36 | Cat Scan Report ---
CLINICAL INFORMATION: Trauma-fall COMPARISON: None. TECHNIQUE: 0.625 mm helical slices were obtained from the skull base through the superior T2 end plate. Following reconstruction, 2.5 mm sagittal, coronal and axial reformations , with and without disc space angling, were processed. The exam was reviewed at bone and soft tissue windows. The exam was performed using radiation dose optimization techniques including, but not limited to, automated exposure control, adjustment of the mA and/or kV according to patient size and use of iterative reconstruction technique. FINDINGS: Sagittal and coronal reformatted images show show 3 mm of C4 anterior subluxation due to degenerative facet disease. The remaining cervical spine is anatomically aligned.. There is no fracture or other osseous abnormality. The cervical cord is normal in contour and caliber without focal lesion. Soft tissues are significant for extraordinarily heavy calcific plaque in the right carotid bifurcation with extension into the proximal right internal carotid artery. There is also moderate calcific plaque in the left carotid bifurcation. Moderate centrilobular emphysema changes are seen in the lung apices with interstitial fibrosis in the posterior right upper lobe.. The C2-3 disc level is normal. At C3-4 mild broad disc protrusion results in mild central canal narrowing. At C4-5 mild broad disc protrusion mildly impinges the thecal sac At C5-6, moderate broad disc spur complex with a right-sided asymmetry results in moderate right IV foraminal narrowing with exiting right C6 nerve root impingement. Mild central canal stenosis. At C6-7, a mild broad disc protrusion left-sided asymmetry results in mild central canal and mild left IV foraminal narrowing At C7-T1, there is a mild broad disc protrusion resulting in mild central canal and mild bilateral IV foraminal narrowing. IMPRESSION: 1. No fracture or posttraumatic change. 2. Multilevel degeneration 3. Heavy calcific plaque in the right carotid bifurcation with extension into the proximal right internal carotid artery. There may be hemodynamically significant stenosis in this region. Suggest: Carotid Doppler exam 4. Centrilobular emphysema Interpreted and Authenticated by: Valerio Calvo 12/20/22
--- NOTE | 2022-12-20 10:00 | Cat Scan Report ---
CLINICAL INFORMATION: Trauma now with left hip pain COMPARISON: Abdomen and pelvic CT 03/05/2014 TECHNIQUE: 0.625 mm helical slices were obtained from the mid L4 through the subtrochanteric regions. Following reconstruction, 2.5 mm sagittal, coronal and axial reformations were processed. The exam was reviewed in bone and soft tissue windows. The exam was performed using radiation dose optimization techniques including, but not limited to, automated exposure control, adjustment of mA and/or kV according to patient size and use of iterative reconstruction technique. FINDINGS: An acute oblique nondisplaced transcervical fracture of the left femoral neck appreciated. It extends to the subcapital region. No other osseous abnormalities. Both SI and hip joints are normal in width and alignment without arthritic change. Hysterectomy oophorectomy changes noted. Urinary bladder is unremarkable. Few sigmoid diverticuli appreciated. The remainder of the visualized large bowel and small bowel are normal. There is no free air, free fluid or adenopathy. Heavy calcific plaque is seen in the distal abdominal aorta and iliac arteries. There are calcified granulomas in the subcutaneous fat in both gluteal regions as previously seen. IMPRESSION: Oblique nondisplaced transcervical acute fracture left hip Interpreted and Authenticated by: Valerio Calvo 12/20/22
[2022-12-20] MEDS ORDERED: 0.9 % SODIUM CHLORIDE 500 ML IV ONE (11:08)
--- NOTE | 2022-12-20 11:52 | XRay Report ---
CLINICAL INFORMATION: Trauma COMPARISON: None. FINDINGS: Oblique nondisplaced transcervical fracture through the left hip appreciated. No other osseous abnormality. Both SI and hip joints are normal in width and alignment arthritic change. Soft tissues are normal. IMPRESSION: Acute oblique nondisplaced fracture through the left hip Interpreted and Authenticated by: Valerio Calvo 12/20/22
--- NOTE | 2022-12-20 12:55 | Internal Med History&Physical ---
HPI History of Present Illness Patient information: Note initiated : 12/20/22 at 12:45 pm Service Date, if different from initiated Date: [] Patient: Shiva Esparza a 77 y/o F admitted on for fall. Chief Complaint: [] Chief complaint: fall History of present illness: Ms. Esparza is a 77 year old F with chronic back pain on chronic opiates, post polio syndrome, COPD, CKD. She was walking in her home with socks on her feet and slipped and fell on her left hip. Workup in the ER is notable for left hip fracture. CBC and BMP are unremarkable. Ortho is planning to taker her to the OR later today. Constitutional Constitutional: Present as per HPI EENT Eyes: Present as per HPI Cardiovascular Cardiovascular: Present as per HPI Respiratory Respiratory: Present as per HPI Gastrointestinal Gastrointestinal: Present as per HPI Musculoskeletal Additional comments: mechanical slip/fall left hip pain Neurological Neurological: Present as per HPI PFSH PFSH All Active Problems (Updated 12/20/22 @ 11:24 by Angelo Shin MD) Closed hip fracture (Acute) Chronic back pain (Acute) COPD (chronic obstructive pulmonary disease) (Acute) COVID (Acute) Mixed dyslipidemia (Acute) Essential hypertension (Acute) Chronic kidney disease, stage III (moderate) (Acute) Pneumonia involving right lung (Acute) Closed compression fracture of lumbar vertebra (Acute) Hypoxia (Acute) Tobacco abuse (Acute) Obesity (BMI 30.0-34.9) (Acute) Medication side effect (Acute) Left against medical advice (Acute) T12 compression fracture (Acute) Acute exacerbation of chronic obstructive pulmonary disease (Acute) Acute respiratory failure with hypoxemia (Acute) Social History smoking status: Current some day smoker MEDS/ALLERGIES Home Medications and Allergies Home Medications Medication Instructions Recorded Confirmed Type diazepam 10 mg tablet 10 mg PO TIDP PRN leg cramps 11/12/22 11/16/22 History lisinopril 40 mg tablet 40 mg PO QDAY 11/12/22 11/16/22 History lidocaine 5 % topical patch 1 patch topical DAILY@1000 #7 ea 11/13/22 11/16/22 Rx methocarbamol 500 mg tablet 500 mg PO TID PRN spasm/pain #20 11/13/22 11/16/22 Rx tabs hydrocodone 10 mg-acetaminophen 1 tab PO Q6HP PRN Back Pain #11/22/22 Rx 325 mg tablet tabs Allergies Allergy/AdvReac Type Severity Reaction Status Date / Time Morpholine Analogues Allergy Severe Anaphylaxis Verified 11/15/22 17:55 aspirin [From Percodan] Allergy Unknown Unknown Verified 11/15/22 17:55 midazolam [From Versed] Allergy Unknown Unknown Verified 11/15/22 17:55 oxycodone [From Percodan] Allergy Unknown Unknown Verified 11/15/22 17:55 Penicillins Allergy Unknown Unknown Verified 11/15/22 17:55 Phenothiazines Allergy Unknown Unknown Verified 11/15/22 17:55 prochlorperazine Allergy Unknown Unknown Verified 11/15/22 17:55 [From Compazine] EXAM Constitutional Vitals: Temp Pulse Resp BP Pulse Ox O2 Del Method O2 Flow Rate 98.0 F 76 17 112/51 94 Nasal Cannula 2 12/20/22 04:34 12/20/22 12:31 12/20/22 04:34 12/20/22 12:31 12/20/22 12:31 12/20/22 08:27 12/20/22 08:27 General appearance: average body habitus and no acute distress ENT ENT exam: Present mucous membranes moist Respiratory Respiratory exam: Present normal respiratory exam and CTAB Cardiovascular Cardiovascular exam: Present normal rate and rhythm GI/Abdominal GI/Abdominal exam: Present normal bowel sounds and soft; Absent distended Neurological Exam Neurological exam: Present CN II-XII intact and oriented X3 DATA Data Completed and Pending Labs: Labs from last 24 hours 12/20/22 12/20/22 12/20/22 05:50 05:50 05:48 WBC 9.1 RBC 4.12 Hgb 14.3 Hct 43.1 POC Hct MCV 104.6 H MCH 34.7 H MCHC 33.2 RDW 14.6 H Plt Count 280 MPV 11.0 Immature Gran % (Auto) 0.4 Neut % (Auto) 66.3 Lymph % (Auto) 21.7 [place] % (Auto) 9.0 Eos % (Auto) 2.3 Baso % (Auto) 0.3 Lymph # (Auto) 1.98 [place] # (Auto) 0.82 Eos # (Auto) 0.21 Baso # (Auto) 0.03 Immature Gran # 0.04 Absolute Neutrophils 6.06 POC Sodium Sodium 134 POC Potassium Potassium 3.6 POC Chloride Chloride 96 Carbon Dioxide 27 POC Total CO2 Anion Gap 11.0 POC BUN BUN 14 Creatinine 1.1 POC Creatinine GFR Calculation 48 Glucose 103 POC Glucose Calcium 8.4 L POC WB Ioniz Calcium Total Bilirubin 0.6 AST 26 ALT 15 Alkaline Phosphatase 143 H Total Protein 7.1 Albumin 3.2 Globulin 3.9 H Albumin/Globulin Ratio 0.8 L POC Troponin I < 0.02 12/20/22 12/20/22 12/20/22 05:38 05:38 05:05 WBC RBC Hgb Hct POC Hct 45.0 45.0 MCV MCH MCHC RDW Plt Count MPV Immature Gran % (Auto) Neut % (Auto) Lymph % (Auto) [place] % (Auto) Eos % (Auto) Baso % (Auto) Lymph # (Auto) [place] # (Auto) Eos # (Auto) Baso # (Auto) Immature Gran # Absolute Neutrophils POC Sodium 137 137 Sodium POC Potassium 3.7 3.7 Potassium POC Chloride 99 96 Chloride Carbon Dioxide POC Total CO2 28.0 29.0 Anion Gap POC BUN 15 15 BUN Creatinine POC Creatinine 1.1 1.2 GFR Calculation Glucose POC Glucose 123 H 111 H Calcium POC WB Ioniz Calcium 1.07 L 1.07 L Total Bilirubin AST ALT Alkaline Phosphatase Total Protein Albumin Globulin Albumin/Globulin Ratio POC Troponin I < 0.02 12/20/22 05:00 WBC RBC Hgb Hct POC Hct Pending MCV MCH MCHC RDW Plt Count MPV Immature Gran % (Auto) Neut % (Auto) Lymph % (Auto) [place] % (Auto) Eos % (Auto) Baso % (Auto) Lymph # (Auto) [place] # (Auto) Eos # (Auto) Baso # (Auto) Immature Gran # Absolute Neutrophils POC Sodium Pending Sodium POC Potassium Pending Potassium POC Chloride Pending Chloride Carbon Dioxide POC Total CO2 Pending Anion Gap POC BUN Pending BUN Creatinine POC Creatinine Pending GFR Calculation Glucose POC Glucose Pending Calcium POC WB Ioniz Calcium Pending Total Bilirubin AST ALT Alkaline Phosphatase Total Protein Albumin Globulin Albumin/Globulin Ratio POC Troponin I A/P Assessment and plan (1) Closed hip fracture: Assessment and plan: - to OR with Ortho later today - DVT Prophy post op Enoxaparin 40 mg subcutaneous daily Status: Acute (2) Chronic back pain: Assessment and plan: - continue home meds/narcotics Status: Acute Time Spent With Patient Time: Total time spent is greater than 50% in coordination of care (as documented) at patient's floor/unit and/or counseling patient: Initial: Total time with patient: 40 - 54 minutes
[2022-12-20] MEDS ORDERED: ONDANSETRON 4 MG/2 ML VIAL IV PRN (13:55)
[2022-12-20] MEDS ORDERED: DEXTROSE 5%-LR 1,000 ML IV SCH (13:55)
[2022-12-20] MEDS ORDERED: HYDROcodone/APAP 10/325MG TABLET PO PRN (13:55)
[2022-12-20] MEDS: HYDROmorphone 1 MG/ML SYRINGE IV PRN ×3 (14:07→18:04)
[2022-12-20] MEDS: 0.9 % SODIUM CHLORIDE 10 ML SYRINGE IV SCH ×2 (14:16→22:52)
[2022-12-20] MEDS ORDERED: ceFAZolin 1 GM VIAL ONE (19:30)
[2022-12-20] MEDS ORDERED: ceFAZolin 2 GM in DEXTROSE 5% IN WATER 50 ML IV SCH (19:30)
[2022-12-20] MEDS ORDERED: DEXAMETHASONE 4 MG/ML VIAL ONE (19:36)
[2022-12-20] MEDS ORDERED: KETAMINE 50 MG/ML Syringe (ANEST) IV ONE (19:36)
[2022-12-20] MEDS ORDERED: ePHEDrine 50 MG/5 ML SYRINGE (ANEST) IV ONE (19:36)
[2022-12-20] MEDS ORDERED: PROPOFOL 200 MG/20 ML VIAL IV ONE (19:36)
[2022-12-20] MEDS ORDERED: DEXAMETHASONE 10 MG/ML VIAL ONE (19:36)
[2022-12-20] MEDS ORDERED: GLYCOPYRROLATE 0.2 MG/ML VIAL IV ONE (19:36)
[2022-12-20] MEDS ORDERED: ROPIVACAINE HCL/PF 20 ML VIAL IJ ONE (19:36)
--- NOTE | 2022-12-20 20:28 | Discharge Plan ---
DC Instructions-General Patient Instructions Dressing Care: May shower in 2 days Discharge Plan Patient/Caregiver Discharge Instructions Activity: ambulate only with your walker, as instructed and other Diet: Regular Diet Prescriptions: No Action diazepam 10 mg tablet 10 mg PO TIDP PRN (Reason: leg cramps) lisinopril 40 mg tablet 40 mg PO QDAY methocarbamol 500 mg tablet 500 mg PO TID PRN (Reason: spasm/pain) Qty: 20 0RF hydrocodone-acetaminophen 10-325 mg tablet 1 tab PO Q6HP PRN (Reason: Back Pain) Qty: 20 0RF Follow Up Plan Follow up with: Harrison Rubin DO [Primary Care Provider] - Patient Disposition: Xfer SNF Prognosis: Undetermined Rehab Potential: Fair I certify that the patient requires SNF services: Yes Overall status at discharge: patient is progressing back to baseline Discharge Orders: Discharge Order (Routine); Ordered 12/20/22 Ordered By: Valerio Winslow Discharge Comment: cc: left hip femoral neck fracture s/p Carmen rodriguez
--- NOTE | 2022-12-20 20:28 | General Surgery Procedure Note ---
Date of procedure: Note initiated : 12/20/22 at 8:26 pm Service Date, if different from initiated Date: [] Pre-op diagnosis: left femoral neck fracture Post-op diagnosis: same Procedure: left hip closed reduction and percutaneous screw fixation Findings: transcervical femoral neck fracture Anesthesia: spinal Surgeon: Valerio Winslow Tipple Engineer: Colton Olivares Estimated blood loss: 25 Pathology: none sent Condition: stable Disposition: PACU
[2022-12-20] MEDS ORDERED: FLEETS ADULT ENEMA PR PRN (20:29)
[2022-12-20] MEDS ORDERED: MAGNESIUM HYDROXIDE 30 ML ORAL.SUSP PO PRN (20:29)
[2022-12-20] MEDS ORDERED: BISACODYL 10 MG SUPP.RECT PR PRN (20:29)
[2022-12-20] MEDS ORDERED: POLYETHYLENE GLYCOL 3350 17 GM PACKET PO PRN (20:29)
[2022-12-20] MEDS ORDERED: ONDANSETRON 4 MG ODT TABLET SL PRN (20:29)
[2022-12-20] MEDS ORDERED: MEPERIDINE 25 MG/ML VIAL IV PRN (20:38)
[2022-12-20] MEDS ORDERED: IPRATROPIUM/ALBUTEROL 3 ML AMPUL.NEB NEB PRN (20:38)
[2022-12-20] MEDS: SENNOSIDES 1 TABLET PO SCH (21:00)
[2022-12-20] MEDS: DOCUSATE SODIUM 100 MG CAPSULE PO SCH (21:00)
[2022-12-20] MEDS: 0.9 % SODIUM CHLORIDE 1,000 ML IV SCH (21:24)
--- NOTE | 2022-12-20 22:39 | History and Physical Report ---
DATE OF ADMISSION: 12/20/2022 HISTORY AND PHYSICAL CHIEF COMPLAINT: Left hip injury history. HISTORY OF PRESENT ILLNESS: Ms. Esparza is a very pleasant 77-year-old female with chronic low back pain who was walking in her home with socks on her feet and she slipped and fell onto her left hip. She went into the ER and a CT as well as x-rays were performed which demonstrated a valgus impacted minimally displaced femoral neck fracture. She denies any other conditions. She did not hit her head, no loss of consciousness. No other musculoskeletal complaints. PAST MEDICAL HISTORY: 1. Chronic back pain with compression fracture. 2. COPD. 3. History of COVID. 4. Dyslipidemia. 5. Hypertension. 6. Chronic kidney disease. 7. Pneumonia. 8. Hypoxia. 9. Tobacco use. 10. Obesity. PAST SURGICAL HISTORY: Please see intake sheet. MEDICATIONS: 1. Diazepam 10 mg p.o. t.i.d. 2. Lisinopril 40 mg p.o. every day. 3. Lidocaine topical patch 5% daily. 4. Methocarbamol 500 mg p.o. t.i.d. p.r.n. spasm. 5. Hydrocodone 10/325 one every 6 hours p.r.n. pain in the back. ALLERGIES: MORPHINE, ASPIRIN, MIDAZOLAM, OXYCODONE, PENICILLIN, PHENOTHIAZINE, COMPAZINE. FAMILY HISTORY: Noncontributory. SOCIAL HISTORY: She currently lives in town with her . She smokes daily. REVIEW OF SYSTEMS: No recent chest pain, shortness of breath, fever, chills, nausea, vomiting, diarrhea, constipation. PHYSICAL EXAMINATION: GENERAL: Resting on the hospital bed in no acute distress. VITAL SIGNS: Temperature 98.0, pulse 76, respirations 17, BP 112/51, pulse ox 94% on 2 liters nasal cannula. CHEST: Clear to auscultation in all lung noriega bilaterally. ABDOMEN: Soft, nontender, nondistended. HEART: Regular rate and rhythm without murmur or gallop. EXTREMITIES: Bilateral upper extremities and right lower extremity full range of motion, nontender to palpation. Left lower extremity demonstrates tenderness to palpation in the groin and the greater trochanter. Any attempted motion of the hip causes severe groin pain. Full range of motion of the ankles and toes. Sensation intact to light touch grossly throughout the extremity. 2+ DP and PT with capillary refill less than 2 seconds. LABORATORY STUDIES: Include a white count of 9.1, hemoglobin of 14.3. Radiographs of the left hip, AP pelvis and 2 view of the left hip demonstrate a valgus back to minimally displaced transcervical femoral neck fracture. CT scan of the left hip demonstrated nondisplaced transcervical femoral neck fracture. PLAN: We had longstanding discussion about options and talked about surgery versus nonsurgical treatment. I felt that surgery would be the best option. We detected about percutaneous pin fixation versus hemiarthroplasty. After risks, benefits and discussion of each option and postoperative course, she elected that she would like to proceed with obtaining a left femoral neck. I think this is reasonable. She is aware that there is slight chance of also blood ____ to the femoral head resulting in AVN and potentially needing further surgeries but our hope is we can do a minimal surgery and get her up and moving around fairly quickly and help with her pain. ____ plate #2. Plan for left hip closed reduction and percutaneous screw fixation. Cedrick Job ID: [id number] Doc ID: [id number] Cindy Winslow MD
[2022-12-21] MEDS ORDERED: ceFAZolin 1 GM VIAL ONE (02:45)
--- NOTE | 2022-12-21 02:58 | XRay Report ---
CLINICAL INFORMATION: ORIF left hip fracture COMPARISON: Preoperative film 12/12/2022 FINDINGS: Sacroiliac and hip joints are normal in width and alignment without arthritic change. Oblique basicervical fracture of the left hip has been reduced to anatomic alignment and now transfixed by three pins. The soft tissues are unremarkable. IMPRESSION: ORIF basicervical fracture left hip-anatomic alignment Interpreted and Authenticated by: Valerio Calvo 12/21/22
[2022-12-21] MEDS ORDERED: ceFAZolin 2 GM in DEXTROSE 5% IN WATER 50 ML IV SCH (03:00)
[2022-12-21] MEDS ORDERED: WATER IV SCH (03:00)
[2022-12-21] MEDS ORDERED: CEFAZOLIN IV SCH (03:00)
[2022-12-21] MEDS ORDERED: DEXTROSE 5% IV SCH (03:00)
--- NOTE | 2022-12-21 03:05 | XRay Report ---
CLINICAL INFORMATION: Intraoperative films-ORIF left hip fracture COMPARISON: None. FINDINGS: Three digital images from the OR show left hip fracture reduced to anatomic alignment and transfixed by three pins. Total fluoroscopy time 1.6 minutes.. IMPRESSION: ORIF left hip fracture anatomic alignment. Interpreted and Authenticated by: Valerio Calvo 12/21/22
[2022-12-21] MEDS: 0.9 % SODIUM CHLORIDE 1,000 ML IV SCH ×2 (05:07→13:08)
[2022-12-21] MEDS: HYDROmorphone 0.5 MG/0.5 ML SYRINGE IV PRN ×4 (05:08→17:01)
[2022-12-21] MEDS: HYDROcodone/APAP 10/325MG TABLET PO PRN ×3 (05:42→14:58)
[2022-12-21] MEDS: METHOCARBAMOL 750 MG TABLET PO PRN (05:42)
[2022-12-21] MEDS: 0.9 % SODIUM CHLORIDE 10 ML SYRINGE IV SCH ×3 (05:50→22:10)
--- NOTE | 2022-12-21 07:07 | Orthopedic Progress Note ---
SUBJECTIVE Subjective Patient information: Note initiated : 12/21/22 at 7:05 am Service Date, if different from initiated Date: [] Patient: Shiva Esparza 77 y/o F admitted on 12/20/22 for fall. Chief Complaint: [s/p left hip pin ] Pertinent ROS: 10 points reviewed and are negative except where mentioned Constitutional Vitals: Vital Signs Temp Pulse Resp BP Pulse Ox O2 Del Method O2 Flow Rate 97.7 F 90 20 115/56 92 Nasal Cannula 2 12/21/22 02:45 12/21/22 02:45 12/21/22 02:45 12/21/22 02:45 12/21/22 02:45 12/21/22 02:45 12/21/22 02:45 Period Temp Pulse Resp BP Sys/Manzano Pulse Ox O2 Del Method O2 Flow Rate Last 24 Hr 97.7 F-98.8 F 72-125 16-26 89-141/48-103 88-98 Nasal Cannula- Room Air 2-4 Intake and Output 12/20/22 12/21/22 12/21/22 19:59 03:59 11:59 Intake Total 903 1250 966 Output Total 250 755 Balance 653 495 966 Weight 175 lb 182 lb 8 oz Intake & Output: Intake & Output 12/20/22 12/21/22 12/21/22 19:59 03:59 11:59 Intake Total 903 1250 966 Output Total 250 755 Balance 653 495 966 Weight 175 lb 182 lb 8 oz Intake: IV 903 50 966 Sodium Chloride 0.9% 1,000 ml @ 965 125 mls/hr IV .Q8H ENIO Rx#: [id number] Sodium Chloride 0.9% 500 ml @ 500 Wide Open IV BOLUS ONE Rx#: [id number] Dextrose 5%-Lactated Ringers 1, 403 000 ml @ 75 mls/hr IV .[id number] ENIO Rx#:[id number] Ancef 2 gm In Dextrose 5% in 50 1 Water 1 ml @ 2 mls/hr IV Q8H ENIO Rx#:[id number] Oral 200 IV - Manual Only 1000 Output: Urine Catheter Amount 250 750 Estimated Blood Loss 5 Other: Urine Appearance Clear Clear Uretheral ([place]) Clear Urine Color Bright Yellow Yellow Uretheral ([place]) Bright Yellow OBJ DATA Labs 12/20/22 05:50 12/20/22 05:50 Labs: Abnormal Lab Results 12/20/22 12/20/22 12/20/22 05:50 05:50 05:38 MCV 104.6 H MCH 34.7 H RDW 14.6 H POC Glucose 123 H Calcium 8.4 L POC WB Ioniz Calcium 1.07 L Alkaline Phosphatase 143 H Globulin 3.9 H Albumin/Globulin Ratio 0.8 L 12/20/22 05:05 MCV MCH RDW POC Glucose 111 H Calcium POC WB Ioniz Calcium 1.07 L Alkaline Phosphatase Globulin Albumin/Globulin Ratio Meds: Medications Acetaminophen (Acetaminophen 325 Mg Tablet) 650 mg PO Q6HP PRN; Protocol PRN Reason: Per Pain Protocol/Fever > 101 Hydrocodone Bitart/Acetaminophen (Hydrocodone/Apap 10/325mg Tablet) 0 tab PO Q4HP PRN; Protocol PRN Reason: Per Pain Protocol Last Admin: 12/21/22 05:42 Dose: 1 tab Apixaban (Apixaban 5 Mg Tablet) 2.5 mg PO BID [facility] Bisacodyl (Bisacodyl 10 Mg Supp.Rect) 10 mg [place] Q2-3DAYS PRN PRN Reason: Constipation Docusate Sodium (Docusate Sodium 100 Mg Capsule) 100 mg PO BID [facility] Last Admin: 12/20/22 21:00 Dose: Not Given Enoxaparin Sodium (Enoxaparin 40 Mg/0.4 Ml Syringe) 40 mg SQ DAILY [facility] Hydromorphone HCl (Hydromorphone 0.5 Mg/0.5 Ml Syringe) 0.5 mg IV Q2HP PRN; Protocol PRN Reason: Per Pain Protocol Last Admin: 12/21/22 05:08 Dose: 0.5 mg Sodium Chloride (Sodium Chloride 0.9%) 1,000 mls @ 125 mls/hr IV .Q8H [facility] Last Admin: 12/21/22 05:07 Dose: 125 mls/hr Cefazolin Sodium 2 gm/ (Dextrose) 50 mls @ 100 mls/hr IV Q8H [facility]; Protocol Stop: 12/21/22 11:29 Last Admin: 12/21/22 02:58 Dose: Not Given Lidocaine (Lidocaine Patch) 1 patch TOPICAL DAILY@1000 [facility] Lisinopril (Lisinopril 20 Mg Tablet) 40 mg PO QDAY [facility] Magnesium Hydroxide (Magnesium Hydroxide 30 Ml Oral.Susp) 30 ml PO BIDP PRN PRN Reason: Constipation Methocarbamol (Methocarbamol 500 Mg Tablet) 500 mg PO TIDP PRN PRN Reason: spasm/pain Methocarbamol (Methocarbamol 750 Mg Tablet) 750 mg PO Q6HP PRN PRN Reason: Muscle Spasm Last Admin: 12/21/22 05:42 Dose: 750 mg Ondansetron HCl (Ondansetron 4 Mg/2 Ml Vial) 4 mg IV Q6HP PRN PRN Reason: Nausea And Vomiting Ondansetron HCl (Ondansetron 4 Mg Odt Tablet) 4 mg SL Q4HP PRN; Protocol PRN Reason: Nausea And Vomiting Polyethylene Glycol (Polyethylene Glycol 3350 17 Gm Packet) 17 gm PO DAILYP PRN PRN Reason: Constipation Senna (Sennosides 1 Tablet) 2 tab PO HS [facility] Last Admin: 12/20/22 21:00 Dose: Not Given Sodium Biphosphate/Sodium Phosphate (Fleets Adult Enema) 1 dose [place] Q3-4DAYS PRN PRN Reason: Constipation Sodium Chloride (0.9 % Sodium Chloride 10 Ml Syringe) 10 ml IV Q8 [facility] Last Admin: 12/21/22 05:50 Dose: Not Given A/P Narrative A/P Narrative: Patient seen and examined this a.m. awake alert conversant. Has some expected postoperative pain but feels it is managed on current regimen. Has not ambulated as of yet. Dressing at left lower extremity clean dry and intact, ice pack in place, both lower extremities are warm, well-perfused, neurovascularly intact with intact ankle motion to testing. Plan is for expected discharge in 1 to 2 days likely to rehab facility with follow-up at [facility] in 10 to 14 days status post discharge. 50% weightbearing with walker at all times. PT/OT Pain control DVT prophylaxis. Time Spent With Patient Time: Total time spent is greater than 50% in coordination of care (as documented) at patient's floor/unit and/or counseling patient:
[2022-12-21 08:10] LABS: Blood Urea Nitrogen 11 mg/dL (8-23); Calcium 7.9 mg/dL (8.6-10.4); Carbon Dioxide 23 mmol/L (22-30); Chloride 103 mmol/L (96-108); Glomerular Filtration Rate 71; Glucose 161 mg/dL (70-105)
[2022-12-21 08:11] LABS: Basophils # (Auto) 0.01 K/mcL (0.00-0.30); Basophils % (Auto) 0.1 % (0.0-2.0); Eosinophils # (Auto) 0 K/mcL (0.00-0.70); Eosinophils % (Auto) 0 % (0.0-7.0); Hemoglobin 12.4 g/dL (11.2-15.7); Lymphocytes % (Auto) 5.9 % (15.5-49.0); Mean Cell Volume 106.1 fL (80.0-100.0); Mean Corpuscular HGB Conc 32.6 g/dL (31.0-36.0); Mean Platelet Volume 11.4 fL (8.8-12.5); Monocytes # (Auto) 0.31 K/mcL (0.10-0.90); Monocytes % (Auto) 4.6 % (1.0-12.0); Platelet Count 209 K/mcL (140-440); RBC 3.58 M/mcL (3.59-5.38); Red Cell Distribution Width 14.5 % (11.5-14.5); WBC 6.8 K/mcL (4.5-11.0)
[2022-12-21] MEDS ORDERED: ENOXAPARIN 40 MG/0.4 ML SYRINGE SQ SCH (09:00)
--- NOTE | 2022-12-21 09:47 | Operative Note ---
DATE OF OPERATION: 12/20/2022 DATE OF PROCEDURE: 12/20/2022 PREOPERATIVE DIAGNOSIS: Left transcervical nondisplaced femoral neck fracture. POSTOPERATIVE DIAGNOSIS: Left transcervical nondisplaced femoral neck fracture. PROCEDURE PERFORMED: Closed reduction and percutaneous screw fixation, left femoral neck. SURGEON: Cindy Winslow M.D. SAP ABAP PROGRAMMER SURGEON: Ricardo Olivares PA-C. This providers expertise and technical skill were required throughout the case. The ALLA assisted with preoperative coordination, intraoperative retraction, wound closure, and dressing and splint application, as well as postoperative documentation and care coordination. ANESTHESIA: General. INTRAOPERATIVE FINDINGS: A nondisplaced fracture of the transcervical region of the femoral neck. IMPLANTS: A 7.0 cannulated screws, Synthes 80 x 2, 90 mm x1. INDICATIONS: The patient is a 77-year-old female. She fell and sustained a nondisplaced transcervical femoral neck fracture. This was confirmed on CT and x-ray. She is having significant pain. We talked about different options and elected to proceed with the above surgical intervention. The risks and benefits were discussed with the patient in detail including, but not limited to, the risks of anesthesia, problems with the heart or lungs related to anesthesia, infection, compromise or injury to the nerves and blood vessels, deep venous thrombosis, pulmonary embolism, pneumonia, continued pain after surgery, worsening pain or symptoms after surgery, swelling, loss of motion, need for repeat surgery, hardware failure, re-tear or failure of repair site, malunion, nonunion, and hardware pain requiring future removal. DESCRIPTION OF PROCEDURE: The patient was seen preoperatively where site was signed, and all questions were answered. She was then transferred to the operating room and a spinal anesthetic was administered without complication. An LMA was inserted. She was placed on the [place] table with all prominences well-padded. The radiographs came in and we confirmed the fracture was still anatomically reduced. We prepped and draped in the usual sterile fashion using a wall drape. I made three percutaneous small incisions, placed the preliminary pin in an inverted triangle fashion using the C-arm for guidance. Once this was done, I measured the two superior, 80 mm. The distal area of the distal central screw was 90 mm. I overdrilled and then placed the screws with excellent fixation and tension on the fracture site. Radiographs were taken to confirm that the fracture was anatomically reduced and the pins were all in good position. We then thoroughly irrigated. We closed the percutaneous incision sites with ellie. She was then extubated, transferred to the stretcher and taken to PACU in stable condition. COMPLICATIONS: None. DRAINS: None. DISPOSITION: PACU in stable condition. PINA:[place] Job ID: [id number] Doc ID: [id number] Cindy Winslow MD
[2022-12-21] MEDS: METHOCARBAMOL 500 MG TABLET PO PRN ×2 (10:59→17:00)
[2022-12-21] MEDS: DOCUSATE SODIUM 100 MG CAPSULE PO SCH ×2 (10:59→20:54)
[2022-12-21] MEDS: LISINOPRIL 20 MG TABLET PO SCH (10:59)
[2022-12-21] MEDS: LIDOCAINE PATCH TOPICAL SCH (10:59)
[2022-12-21] MEDS ORDERED: ceFAZolin 1 GM VIAL IV ONE (11:00)
--- NOTE | 2022-12-21 11:44 | Internal Med Progress Note ---
SUBJECTIVE Subjective Patient information: Note initiated : 12/21/22 at 11:41 am Service Date, if different from initiated Date: [] Patient: Shiva Esparza a 77 y/o F admitted on 12/20/22 for fall. Chief Complaint: [] Interval history: Ms. Esparza is a 77 year old F with chronic back pain on chronic opiates, post polio syndrome, COPD, CKD. She was walking in her home with socks on her feet and slipped and fell on her left hip. Workup in the ER is notable for left hip fracture. CBC and BMP are unremarkable. Ortho is planning to taker her to the OR later today. Dec 21, s/p ORIF left hip Constitutional Vitals: Vital Signs Temp Pulse Resp BP Pulse Ox O2 Del Method O2 Flow Rate 98.2 F 88 20 105/49 93 Nasal Cannula 2 12/21/22 08:00 12/21/22 08:00 12/21/22 08:00 12/21/22 08:00 12/21/22 08:00 12/21/22 08:00 12/21/22 08:00 Period Temp Pulse Resp BP Sys/Manzano Pulse Ox O2 Del Method O2 Flow Rate Last 24 Hr 97.7 F-98.8 F 72-125 16-26 102-141/49-103 88-96 Nasal Cannula- Nasal Cannula 2-4 Intake and Output 12/20/22 12/21/22 12/21/22 19:59 03:59 11:59 Intake Total 903 1250 966 Output Total 250 755 Balance 653 495 966 Weight 79.379 kg 82.781 kg Intake & Output: Intake & Output 12/20/22 12/21/22 12/21/22 19:59 03:59 11:59 Intake Total 903 1250 966 Output Total 250 755 Balance 653 495 966 Weight 79.379 kg 82.781 kg Intake: IV 903 50 966 Sodium Chloride 0.9% 1,000 ml @ 965 125 mls/hr IV .Q8H [facility] Rx#: [id number] Sodium Chloride 0.9% 500 ml @ 500 Wide Open IV [facility] Rx#: [id number] Dextrose 5%-Lactated Ringers 1, 403 000 ml @ 75 mls/hr IV .[id number] [facility] Rx#:[id number] Ancef 2 gm In Dextrose 5% in 50 1 Water 1 ml @ 2 mls/hr IV Q8H [facility] Rx#:[id number] Oral 200 IV - Manual Only 1000 Output: Urine Catheter Amount 250 750 Estimated Blood Loss 5 Other: Urine Appearance Clear Clear Uretheral ([place]ham) Clear Urine Color Bright Yellow Yellow Uretheral ([place]) Bright Yellow General appearance: no acute distress Head Head exam: Present atraumatic, normal inspection and normocephalic ENT ENT exam: Present mucous membranes moist Respiratory Respiratory exam: Present normal respiratory exam and CTAB Cardiovascular Cardiovascular exam: Present normal rate and rhythm GI/Abdominal GI/Abdominal exam: Present normal bowel sounds and soft Neurological Exam Neurological exam: Present CN II-XII intact and oriented X3 OBJ DATA Labs 12/21/22 05:46 12/21/22 05:45 Labs: Abnormal Lab Results 12/21/22 12/21/22 12/20/22 05:46 05:45 05:50 RBC 3.58 L MCV 106.1 H MCH 34.6 H RDW Neut % (Auto) 89.0 H Lymph % (Auto) 5.9 L Lymph # (Auto) 0.40 L Glucose 161 H POC Glucose Calcium 7.9 L 8.4 L POC WB Ioniz Calcium Alkaline Phosphatase 143 H Globulin 3.9 H Albumin/Globulin Ratio 0.8 L 12/20/22 12/20/22 12/20/22 05:50 05:38 05:05 RBC MCV 104.6 H MCH 34.7 H RDW 14.6 H Neut % (Auto) Lymph % (Auto) Lymph # (Auto) Glucose POC Glucose 123 H 111 H Calcium POC WB Ioniz Calcium 1.07 L 1.07 L Alkaline Phosphatase Globulin Albumin/Globulin Ratio Meds: Medications Acetaminophen (Acetaminophen 325 Mg Tablet) 650 mg PO Q6HP PRN; Protocol PRN Reason: Per Pain Protocol/Fever > 101 Hydrocodone Bitart/Acetaminophen (Hydrocodone/Apap 10/325mg Tablet) 0 tab PO Q4HP PRN; Protocol PRN Reason: Per Pain Protocol Last Admin: 12/21/22 10:58 Dose: 2 tab Apixaban (Apixaban 5 Mg Tablet) 2.5 mg PO BID [facility] Bisacodyl (Bisacodyl 10 Mg Supp.Rect) 10 mg [place] Q2-3DAYS PRN PRN Reason: Constipation Docusate Sodium (Docusate Sodium 100 Mg Capsule) 100 mg PO BID [facility] Last Admin: 12/21/22 10:59 Dose: 100 mg Hydromorphone HCl (Hydromorphone 0.5 Mg/0.5 Ml Syringe) 0.5 mg IV Q2HP PRN; Protocol PRN Reason: Per Pain Protocol Last Admin: 12/21/22 10:58 Dose: 0.5 mg Sodium Chloride (Sodium Chloride 0.9%) 1,000 mls @ 125 mls/hr IV .Q8H [facility] Last Admin: 12/21/22 05:07 Dose: 125 mls/hr Lidocaine (Lidocaine Patch) 1 patch TOPICAL DAILY@1000 [facility] Last Admin: 12/21/22 10:59 Dose: Not Given Lisinopril (Lisinopril 20 Mg Tablet) 40 mg PO QDAY [facility] Last Admin: 12/21/22 10:59 Dose: 40 mg Magnesium Hydroxide (Magnesium Hydroxide 30 Ml Oral.Susp) 30 ml PO BIDP PRN PRN Reason: Constipation Methocarbamol (Methocarbamol 500 Mg Tablet) 500 mg PO TIDP PRN PRN Reason: spasm/pain Last Admin: 12/21/22 10:59 Dose: 500 mg Methocarbamol (Methocarbamol 750 Mg Tablet) 750 mg PO Q6HP PRN PRN Reason: Muscle Spasm Last Admin: 12/21/22 05:42 Dose: 750 mg Ondansetron HCl (Ondansetron 4 Mg/2 Ml Vial) 4 mg IV Q6HP PRN PRN Reason: Nausea And Vomiting Ondansetron HCl (Ondansetron 4 Mg Odt Tablet) 4 mg SL Q4HP PRN; Protocol PRN Reason: Nausea And Vomiting Polyethylene Glycol (Polyethylene Glycol 3350 17 Gm Packet) 17 gm PO DAILYP PRN PRN Reason: Constipation Senna (Sennosides 1 Tablet) 2 tab PO HS [facility] Last Admin: 12/20/22 21:00 Dose: Not Given Sodium Biphosphate/Sodium Phosphate (Fleets Adult Enema) 1 dose [place] Q3-4DAYS PRN PRN Reason: Constipation Sodium Chloride (0.9 % Sodium Chloride 10 Ml Syringe) 10 ml IV Q8 [facility] Last Admin: 12/21/22 05:50 Dose: Not Given A/P Assessment and plan (1) Closed hip fracture: Assessment and plan: - s/p ORIF - rehab placement? Status: Acute (2) Chronic back pain: Assessment and plan: - continue home meds/narcotics Status: Acute Time Spent With Patient Time: Total time spent is greater than 50% in coordination of care (as documented) at patient's floor/unit and/or counseling patient: QUALITY VTE Deep Vein Thrombosis/Pulmonary Embolism Present on Admission: No
--- NOTE | 2022-12-21 14:42 | Internal Med Progress Note ---
SUBJECTIVE Subjective Patient information: Note initiated : 12/21/22 at 2:39 pm Service Date, if different from initiated Date: [] Patient: Shiva Esparza a 77 y/o F admitted on 12/20/22 for fall. Chief Complaint: [] Interval history: Ms. Esparza is a 77 year old F with chronic back pain on chronic opiates, post polio syndrome, COPD, CKD. She was walking in her home with socks on her feet and slipped and fell on her left hip. Workup in the ER is notable for left hip fracture. CBC and BMP are unremarkable. Ortho is planning to taker her to the OR later today. Dec 21, s/p ORIF left hip 12/22 Review of Systems: denies headache/fever/chills/nausea/vomiting/chest or abdominal pain/cough/dyspnea/diarrhea. Otherwise see above. PHYSICAL EXAM: General: Alert, Awake, No acute Distress, obese Eyes/N/T: EOMI, no scleral icterus, Head/Neck: neck supple, full ROM, CV: RRR, No murmurs, Pulm: Clear b/l, no wheezing/rhonchi/rales, no respiratory distress Abd: soft, nontender, +BS x4 Ext: no clubbing/cyanosis/edema, left hip dressings Neuro: Alert, no focal deficits, moves all extremities, sensations intact b/l upper/lower Psychiatric: Skin: warm/dry, normal color Constitutional Vitals: Vital Signs Temp Pulse Resp BP Pulse Ox O2 Del Method O2 Flow Rate 98.7 F 97 H 20 129/51 99 Room Air 2 12/21/22 12:00 12/21/22 12:00 12/21/22 12:00 12/21/22 12:00 12/21/22 12:00 12/21/22 12:00 12/21/22 08:00 Period Temp Pulse Resp BP Sys/Manzano Pulse Ox O2 Del Method O2 Flow Rate Last 24 Hr 97.7 F-98.8 F 88-125 16-26 102-141/49-103 88-99 Nasal Cannula- Room Air 2-4 Intake and Output 12/21/22 12/21/22 12/21/22 03:59 11:59 19:59 Intake Total 4404 749 0755 Output Total 755 Balance 044 603 5358 Weight 82.781 kg Intake & Output: Intake & Output 12/21/22 12/21/22 12/21/22 03:59 11:59 19:59 Intake Total 0035 453 9946 Output Total 755 Balance 327 804 8858 Weight 82.781 kg Intake: IV 50 966 1000 Sodium Chloride 0.9% 1,000 ml @ 965 1000 125 mls/hr IV .Q8H [facility] Rx#: [id number] Ancef 2 gm In Dextrose 5% in 50 1 Water 1 ml @ 2 mls/hr IV Q8H [facility] Rx#:[id number] Oral 200 IV - Manual Only 1000 Output: Urine Catheter Amount 750 Estimated Blood Loss 5 Other: Urine Appearance Clear Uretheral ([place]) Clear Urine Color Yellow Uretheral ([place]) Yellow OBJ DATA Labs 12/21/22 05:46 12/21/22 05:45 Labs: Abnormal Lab Results 12/21/22 12/21/22 12/20/22 05:46 05:45 05:50 RBC 3.58 L MCV 106.1 H MCH 34.6 H RDW Neut % (Auto) 89.0 H Lymph % (Auto) 5.9 L Lymph # (Auto) 0.40 L Glucose 161 H POC Glucose Calcium 7.9 L 8.4 L POC WB Ioniz Calcium Alkaline Phosphatase 143 H Globulin 3.9 H Albumin/Globulin Ratio 0.8 L 12/20/22 12/20/22 12/20/22 05:50 05:38 05:05 RBC MCV 104.6 H MCH 34.7 H RDW 14.6 H Neut % (Auto) Lymph % (Auto) Lymph # (Auto) Glucose POC Glucose 123 H 111 H Calcium POC WB Ioniz Calcium 1.07 L 1.07 L Alkaline Phosphatase Globulin Albumin/Globulin Ratio Meds: Medications Acetaminophen (Acetaminophen 325 Mg Tablet) 650 mg PO Q6HP PRN; Protocol PRN Reason: Per Pain Protocol/Fever > 101 Hydrocodone Bitart/Acetaminophen (Hydrocodone/Apap 10/325mg Tablet) 0 tab PO Q4HP PRN; Protocol PRN Reason: Per Pain Protocol Last Admin: 12/21/22 10:58 Dose: 2 tab Apixaban (Apixaban 5 Mg Tablet) 2.5 mg PO BID [facility] Bisacodyl (Bisacodyl 10 Mg Supp.Rect) 10 mg [place] Q2-3DAYS PRN PRN Reason: Constipation Docusate Sodium (Docusate Sodium 100 Mg Capsule) 100 mg PO BID [facility] Last Admin: 12/21/22 10:59 Dose: 100 mg Hydromorphone HCl (Hydromorphone 0.5 Mg/0.5 Ml Syringe) 0.5 mg IV Q2HP PRN; Protocol PRN Reason: Per Pain Protocol Last Admin: 12/21/22 13:04 Dose: 0.5 mg Sodium Chloride (Sodium Chloride 0.9%) 1,000 mls @ 125 mls/hr IV .Q8H [facility] Last Infusion: 12/21/22 13:08 Dose: Infused Lidocaine (Lidocaine Patch) 1 patch TOPICAL DAILY@1000 [facility] Last Admin: 12/21/22 10:59 Dose: Not Given Lisinopril (Lisinopril 20 Mg Tablet) 40 mg PO QDAY [facility] Last Admin: 12/21/22 10:59 Dose: 40 mg Magnesium Hydroxide (Magnesium Hydroxide 30 Ml Oral.Susp) 30 ml PO BIDP PRN PRN Reason: Constipation Methocarbamol (Methocarbamol 500 Mg Tablet) 500 mg PO TIDP PRN PRN Reason: spasm/pain Last Admin: 12/21/22 10:59 Dose: 500 mg Methocarbamol (Methocarbamol 750 Mg Tablet) 750 mg PO Q6HP PRN PRN Reason: Muscle Spasm Last Admin: 12/21/22 05:42 Dose: 750 mg Ondansetron HCl (Ondansetron 4 Mg/2 Ml Vial) 4 mg IV Q6HP PRN PRN Reason: Nausea And Vomiting Ondansetron HCl (Ondansetron 4 Mg Odt Tablet) 4 mg SL Q4HP PRN; Protocol PRN Reason: Nausea And Vomiting Polyethylene Glycol (Polyethylene Glycol 3350 17 Gm Packet) 17 gm PO DAILYP PRN PRN Reason: Constipation Senna (Sennosides 1 Tablet) 2 tab PO HS [facility] Last Admin: 12/20/22 21:00 Dose: Not Given Sodium Biphosphate/Sodium Phosphate (Fleets Adult Enema) 1 dose [place] Q3-4DAYS PRN PRN Reason: Constipation Sodium Chloride (0.9 % Sodium Chloride 10 Ml Syringe) 10 ml IV Q8 [facility] Last Admin: 12/21/22 05:50 Dose: Not Given A/P Narrative A/P Narrative: Assessment and plan *Closed hip fracture: s/p ORIF (12/21) - rehab placement -pt/ot -pain control *Chronic back pain: -continue home meds/narcotics *Obesity: BMI 30 *Anxiety: On diazepam *HTN: On lisinopril *ppx: per ortho apixaban Time Spent With Patient Time: Total time spent is greater than 50% in coordination of care (as documented) at patient's floor/unit and/or counseling patient: QUALITY VTE Deep Vein Thrombosis/Pulmonary Embolism Present on Admission: No
[2022-12-21] MEDS: APIXABAN 5 MG TABLET PO SCH (20:53)
[2022-12-21] MEDS: SENNOSIDES 1 TABLET PO SCH (20:54)
[2022-12-21] MEDS: ACETAMINOPHEN 325 MG TABLET PO PRN (21:54)
[2022-12-22] MEDS: 0.9 % SODIUM CHLORIDE 10 ML SYRINGE IV SCH ×3 (05:36→21:10)
[2022-12-22 06:48] LABS: Hematocrit 33.6 % (34.1-44.9); Hemoglobin 11.1 g/dL (11.2-15.7)
[2022-12-22] MEDS: DOCUSATE SODIUM 100 MG CAPSULE PO SCH ×2 (08:29→20:19)
[2022-12-22] MEDS: METHOCARBAMOL 750 MG TABLET PO PRN ×2 (08:29→16:42)
[2022-12-22] MEDS: APIXABAN 5 MG TABLET PO SCH ×2 (08:29→20:19)
[2022-12-22] MEDS: LIDOCAINE PATCH TOPICAL SCH (08:30)
[2022-12-22] MEDS: LISINOPRIL 20 MG TABLET PO SCH (08:30)
--- NOTE | 2022-12-22 08:30 | Internal Med Progress Note ---
SUBJECTIVE Subjective Patient information: Note initiated : 12/22/22 at 8:26 am Service Date, if different from initiated Date: [] Patient: Shiva Esparza a 77 y/o F admitted on 12/20/22 for fall. Chief Complaint: [] Interval history: Ms. Esparza is a 77 year old F with chronic back pain on chronic opiates, post polio syndrome, COPD, CKD. She was walking in her home with socks on her feet and slipped and fell on her left hip. Workup in the ER is notable for left hip fracture. CBC and BMP are unremarkable. Ortho is planning to taker her to the OR later today. Dec 21, s/p ORIF left hip 3/ Patient complains of left hip pain. Anemia in the postop setting noted. Patient noted to be on oxygen the first night she came in. Probably related to pain medication. But currently is on room air and satting low to mid 90s. Review of Systems: denies headache/fever/chills/nausea/vomiting/chest or abdominal pain/cough/dyspnea/diarrhea. Otherwise see above. PHYSICAL EXAM: General: Alert, Awake, No acute Distress, obese Eyes/N/T: EOMI, no scleral icterus, Head/Neck: neck supple, full ROM, CV: RRR, No murmurs, Pulm: Clear b/l, no wheezing/rhonchi/rales, no respiratory distress Abd: soft, nontender, +BS x4 Ext: no clubbing/cyanosis/edema, left hip dressings Neuro: Alert, no focal deficits, moves all extremities, sensations intact b/l up per/lower Psychiatric: Skin: warm/dry, normal color Constitutional Vitals: Vital Signs Temp Pulse Resp BP Pulse Ox O2 Del Method O2 Flow Rate 97.7 F 83 18 131/62 97 Nasal Cannula 2 12/22/22 03:10 12/22/22 03:10 12/22/22 03:10 12/22/22 03:10 12/22/22 06:12 12/22/22 06:12 12/22/22 06:12 Period Temp Pulse Resp BP Sys/Manzano Pulse Ox O2 Del Method O2 Flow Rate Last 24 Hr 97.3 F-98.7 F 83-98 18-98 129-141/51-67 94-99 Nasal Cannula- Room Air 2-2 Intake and Output 12/21/22 12/22/22 12/22/22 19:59 03:59 11:59 Intake Total 1360 200 Output Total 405 600 Balance 955 -400 Weight 83.733 kg Intake & Output: Intake & Output 12/21/22 12/22/22 12/22/22 19:59 03:59 11:59 Intake Total 1360 200 Output Total 405 600 Balance 955 -400 Weight 83.733 kg Intake: IV 1000 Sodium Chloride 0.9% 1,000 ml @ 1000 125 mls/hr IV .Q8H [facility] Rx#: [id number] Oral 360 200 Output: Urine Catheter Amount 600 Void Amount 400 Estimated Blood Loss 5 Other: Meal Dinner Urine Appearance Clear Uretheral ([place]) Clear Urine Color Yellow Uretheral ([place]) Yellow Urine Odor Uretheral ([place]) Normal OBJ DATA Labs 12/22/22 05:38 12/21/22 05:45 Labs: Abnormal Lab Results 12/22/22 12/21/22 12/21/22 05:38 05:46 05:45 RBC 3.58 L Hgb 11.1 L Hct 33.6 L MCV 106.1 H MCH 34.6 H RDW Neut % (Auto) 89.0 H Lymph % (Auto) 5.9 L Lymph # (Auto) 0.40 L Glucose 161 H POC Glucose Calcium 7.9 L POC WB Ioniz Calcium Alkaline Phosphatase Globulin Albumin/Globulin Ratio 12/20/22 12/20/22 12/20/22 05:50 05:50 05:38 RBC Hgb Hct MCV 104.6 H MCH 34.7 H RDW 14.6 H Neut % (Auto) Lymph % (Auto) Lymph # (Auto) Glucose POC Glucose 123 H Calcium 8.4 L POC WB Ioniz Calcium 1.07 L Alkaline Phosphatase 143 H Globulin 3.9 H Albumin/Globulin Ratio 0.8 L 12/20/22 05:05 RBC Hgb Hct MCV MCH RDW Neut % (Auto) Lymph % (Auto) Lymph # (Auto) Glucose POC Glucose 111 H Calcium POC WB Ioniz Calcium 1.07 L Alkaline Phosphatase Globulin Albumin/Globulin Ratio Meds: Medications Acetaminophen (Acetaminophen 325 Mg Tablet) 650 mg PO Q6HP PRN; Protocol PRN Reason: Per Pain Protocol/Fever > 101 Last Admin: 12/21/22 21:54 Dose: 650 mg Hydrocodone Bitart/Acetaminophen (Hydrocodone/Apap 10/325mg Tablet) 0 tab PO Q4HP PRN; Protocol PRN Reason: Per Pain Protocol Last Admin: 12/21/22 14:58 Dose: 2 tab Apixaban (Apixaban 5 Mg Tablet) 2.5 mg PO BID [facility] Last Admin: 12/21/22 20:53 Dose: 2.5 mg Bisacodyl (Bisacodyl 10 Mg Supp.Rect) 10 mg [place] Q2-3DAYS PRN PRN Reason: Constipation Docusate Sodium (Docusate Sodium 100 Mg Capsule) 100 mg PO BID [facility] Last Admin: 12/21/22 20:54 Dose: 100 mg Hydromorphone HCl (Hydromorphone 0.5 Mg/0.5 Ml Syringe) 0.5 mg IV Q2HP PRN; Protocol PRN Reason: Per Pain Protocol Last Admin: 12/21/22 17:01 Dose: 0.5 mg Lidocaine (Lidocaine Patch) 1 patch TOPICAL DAILY@1000 [facility] Last Admin: 12/21/22 10:59 Dose: Not Given Lisinopril (Lisinopril 20 Mg Tablet) 40 mg PO QDAY [facility] Last Admin: 12/21/22 10:59 Dose: 40 mg Magnesium Hydroxide (Magnesium Hydroxide 30 Ml Oral.Susp) 30 ml PO BIDP PRN PRN Reason: Constipation Methocarbamol (Methocarbamol 500 Mg Tablet) 500 mg PO TIDP PRN PRN Reason: spasm/pain Last Admin: 12/21/22 17:00 Dose: 500 mg Methocarbamol (Methocarbamol 750 Mg Tablet) 750 mg PO Q6HP PRN PRN Reason: Muscle Spasm Last Admin: 12/21/22 05:42 Dose: 750 mg Ondansetron HCl (Ondansetron 4 Mg/2 Ml Vial) 4 mg IV Q6HP PRN PRN Reason: Nausea And Vomiting Ondansetron HCl (Ondansetron 4 Mg Odt Tablet) 4 mg SL Q4HP PRN; Protocol PRN Reason: Nausea And Vomiting Polyethylene Glycol (Polyethylene Glycol 3350 17 Gm Packet) 17 gm PO DAILYP PRN PRN Reason: Constipation Senna (Sennosides 1 Tablet) 2 tab PO [facility] Last Admin: 12/21/22 20:54 Dose: 2 tab Sodium Biphosphate/Sodium Phosphate (Fleets Adult Enema) 1 dose IA Q3-4DAYS PRN PRN Reason: Constipation Sodium Chloride (0.9 % Sodium Chloride 10 Ml Syringe) 10 ml IV Q8 [facility] Last Admin: 12/22/22 05:36 Dose: 10 ml A/P Narrative A/P Narrative: Assessment and plan *Closed hip fracture: s/p ORIF (12/21) - rehab placement -pt/ot -pain control *Acute hypoxic Resp failure: on admit, 2/2 pain meds? -trial on room air this morning and doing well, monitor -IS *likely COPD(does not wear O2@home): based on imaging and smoking history *Tobacco abuse: Smoking cessation counseling > 3 minutes *Anemia in postop setting: Monitor *Chronic back pain: -continue home meds/narcotics *Obesity: BMI 30 *Anxiety: On diazepam *HTN: On lisinopril *ppx: per ortho apixaban Time Spent With Patient Time: Total time spent is greater than 50% in coordination of care (as documented) at patient's floor/unit and/or counseling patient: Subsequent: Total time with patient: 50 - 65 Minutes QUALITY VTE Deep Vein Thrombosis/Pulmonary Embolism Present on Admission: No
[2022-12-22] MEDS: HYDROmorphone 0.5 MG/0.5 ML SYRINGE IV PRN ×4 (08:31→16:42)
--- NOTE | 2022-12-22 10:04 | Orthopedic Progress Note ---
SUBJECTIVE Subjective Patient information: Note initiated : 12/22/22 at 10:01 am Service Date, if different from initiated Date: [] Patient: Shiva Esparza 77 y/o F admitted on 12/20/22 for fall. Chief Complaint: [pod 2 s/p left hip pin ] Pertinent ROS: 10 points reviewed and are negative except where mentioned Constitutional Vitals: Vital Signs Temp Pulse Resp BP Pulse Ox O2 Del Method O2 Flow Rate 97.3 F 87 18 117/72 94 Room Air 2 12/22/22 08:00 12/22/22 08:00 12/22/22 08:00 12/22/22 08:00 12/22/22 08:00 12/22/22 08:00 12/22/22 06:12 Period Temp Pulse Resp BP Sys/Manzano Pulse Ox O2 Del Method O2 Flow Rate Last 24 Hr 97.3 F-98.7 F 83-98 18-98 117-141/51-72 94-99 Nasal Cannula- Room Air 2-2 Intake and Output 12/21/22 12/22/22 12/22/22 19:59 03:59 11:59 Intake Total 1360 200 Output Total 405 600 Balance 955 -400 Weight 184 lb 9.6 oz Intake & Output: Intake & Output 12/21/22 12/22/22 12/22/22 19:59 03:59 11:59 Intake Total 1360 200 Output Total 405 600 Balance 955 -400 Weight 184 lb 9.6 oz Intake: IV 1000 Sodium Chloride 0.9% 1,000 ml @ 1000 125 mls/hr IV .Q8H [facility] Rx#: [id number] Oral 360 200 Output: Urine Catheter Amount 600 Void Amount 400 Estimated Blood Loss 5 Other: Meal Dinner Urine Appearance Clear Uretheral ([place]) Clear Clear Urine Color Yellow Uretheral ([place]) Yellow Yellow Urine Odor Uretheral ([place]) Normal OBJ DATA Labs 12/22/22 05:38 12/21/22 05:45 Labs: Abnormal Lab Results 12/22/22 12/21/22 12/21/22 05:38 05:46 05:45 RBC 3.58 L Hgb 11.1 L Hct 33.6 L MCV 106.1 H MCH 34.6 H RDW Neut % (Auto) 89.0 H Lymph % (Auto) 5.9 L Lymph # (Auto) 0.40 L Glucose 161 H POC Glucose Calcium 7.9 L POC WB Ioniz Calcium Alkaline Phosphatase Globulin Albumin/Globulin Ratio 12/20/22 12/20/22 12/20/22 05:50 05:50 05:38 RBC Hgb Hct MCV 104.6 H MCH 34.7 H RDW 14.6 H Neut % (Auto) Lymph % (Auto) Lymph # (Auto) Glucose POC Glucose 123 H Calcium 8.4 L POC WB Ioniz Calcium 1.07 L Alkaline Phosphatase 143 H Globulin 3.9 H Albumin/Globulin Ratio 0.8 L 12/20/22 05:05 RBC Hgb Hct MCV MCH RDW Neut % (Auto) Lymph % (Auto) Lymph # (Auto) Glucose POC Glucose 111 H Calcium POC WB Ioniz Calcium 1.07 L Alkaline Phosphatase Globulin Albumin/Globulin Ratio Meds: Medications Acetaminophen (Acetaminophen 325 Mg Tablet) 650 mg PO Q6HP PRN; Protocol PRN Reason: Per Pain Protocol/Fever > 101 Last Admin: 12/21/22 21:54 Dose: 650 mg Hydrocodone Bitart/Acetaminophen (Hydrocodone/Apap 10/325mg Tablet) 0 tab PO Q4HP PRN; Protocol PRN Reason: Per Pain Protocol Last Admin: 12/21/22 14:58 Dose: 2 tab Apixaban (Apixaban 5 Mg Tablet) 2.5 mg PO BID [facility] Last Admin: 12/22/22 08:29 Dose: 2.5 mg Bisacodyl (Bisacodyl 10 Mg Supp.Rect) 10 mg IA Q2-3DAYS PRN PRN Reason: Constipation Docusate Sodium (Docusate Sodium 100 Mg Capsule) 100 mg PO BID [facility] Last Admin: 12/22/22 08:29 Dose: 100 mg Hydromorphone HCl (Hydromorphone 0.5 Mg/0.5 Ml Syringe) 0.5 mg IV Q2HP PRN; Protocol PRN Reason: Per Pain Protocol Last Admin: 12/22/22 08:31 Dose: 0.5 mg Lidocaine (Lidocaine Patch) 1 patch TOPICAL DAILY@1000 [facility] Last Admin: 12/22/22 08:30 Dose: 1 patch Lisinopril (Lisinopril 20 Mg Tablet) 40 mg PO QDAY [facility] Last Admin: 12/22/22 08:30 Dose: 40 mg Magnesium Hydroxide (Magnesium Hydroxide 30 Ml Oral.Susp) 30 ml PO BIDP PRN PRN Reason: Constipation Methocarbamol (Methocarbamol 500 Mg Tablet) 500 mg PO TIDP PRN PRN Reason: spasm/pain Last Admin: 12/21/22 17:00 Dose: 500 mg Methocarbamol (Methocarbamol 750 Mg Tablet) 750 mg PO Q6HP PRN PRN Reason: Muscle Spasm Last Admin: 12/22/22 08:29 Dose: 750 mg Ondansetron HCl (Ondansetron 4 Mg/2 Ml Vial) 4 mg IV Q6HP PRN PRN Reason: Nausea And Vomiting Ondansetron HCl (Ondansetron 4 Mg Odt Tablet) 4 mg SL Q4HP PRN; Protocol PRN Reason: Nausea And Vomiting Polyethylene Glycol (Polyethylene Glycol 3350 17 Gm Packet) 17 gm PO DAILYP PRN PRN Reason: Constipation Senna (Sennosides 1 Tablet) 2 tab PO HS [facility] Last Admin: 12/21/22 20:54 Dose: 2 tab Sodium Biphosphate/Sodium Phosphate (Fleets Adult Enema) 1 dose IA Q3-4DAYS PRN PRN Reason: Constipation Sodium Chloride (0.9 % Sodium Chloride 10 Ml Syringe) 10 ml IV Q8 [facility] Last Admin: 12/22/22 05:36 Dose: 10 ml A/P Narrative A/P Narrative: Patient seen and examined this a.m. resting comfortably but arousable, somnolent but answers questions appropriately. Has some expected postoperative discomfort tenderness to palpation at surgical site and with range of motion of the operative extremity Per nursing staff patient has refused to attempt ambulation and will defecate in the bed. Dressing at left lower extremity clean dry and intact, both lower extremities are warm, well-perfused neurovascular intact with intact ankle motion to testing. Plan is for expected discharge likely to rehab facility in 1 to 2 days with follow-up at [facility] in 10 to 14 days. 50% weightbearing with walker/PT assistance at all times. Pain control DVT prophylaxis PT/OT Time Spent With Patient Time: Total time spent is greater than 50% in coordination of care (as documented) at patient's floor/unit and/or counseling patient:
[2022-12-22] MEDS: HYDROcodone/APAP 10/325MG TABLET PO PRN ×3 (10:42→23:07)
[2022-12-22] MEDS: ACETAMINOPHEN 325 MG TABLET PO PRN (10:56)
[2022-12-22] MEDS: METHOCARBAMOL 500 MG TABLET PO PRN ×2 (10:56→20:19)
--- NOTE | 2022-12-22 11:50 | Discharge Summary ---
Discharge Provider Provider IMPORTANT FOLLOW-UP INFORMATION FOR PCP: Patient information: Note initiated : 12/22/22 at 11:48 am Service Date, if different from initiated Date: [] Patient: Shiva Esparza 77 y/o F admitted on 12/20/22 for fall. Chief Complaint: [] Date of admission: 12/20/22 13:40 Discharge date: 12/23/22 Primary care physician: Harrison Rubin Consults: 12/20/22 07:35 Consult to Physician [CONS] Stat Comment: Consulting Provider: Valerio Winslow Reason For Exam: Physician to Consult 12/22/22 10:57 Consult to Physician [CONS] Routine Comment: Consulting Provider: [facility] Darshan Reason For Exam: Physician to Consult COURSE Hospital Course Hospital course: Interval history: Ms. Esparza is a 77 year old F with chronic back pain on chronic opiates, post polio syndrome, COPD, CKD. She was walking in her home with socks on her feet and slipped and fell on her left hip. Workup in the ER is notable for left hip fracture. CBC and BMP are unremarkable. Ortho is planning to taker her to the OR later today. Dec 21, s/p ORIF left hip 12/22 Patient complains of left hip pain. Anemia in the postop setting noted. Patient noted to be on oxygen the first night she came in. Probably related to pain medication. But currently is on room air and satting low to mid 90s. 12/23 Anemia stable. Chemistry stable. Patient states poor sleep last night and trying to sleep currently. No other new complaints. Assessment and plan *Closed hip fracture: s/p ORIF (12/21) -f/u with Ortho *likely COPD(does not wear O2@home): based on imaging and smoking history *Tobacco abuse: Smoking cessation counseling *Anemia in postop setting: stable *Chronic back pain: -continue home meds/narcotics *Obesity: BMI 30 *Anxiety: On diazepam *HTN: On lisinopril Discharge diagnosis: Hip fracture Secondary discharge diagnosis: Likely underlying COPD tobacco abuse chronic pain obesity anxiety hypertension Time Spent with Patient Time attestation: Total time spent providing and/or coordinating discharge services: Time spent: Greater than 30 minutes EXAM Constitutional Vitals: Temp Pulse Resp BP Pulse Ox O2 Del Method O2 Flow Rate 97.3 F 87 18 117/72 94 Room Air 2 12/22/22 08:00 12/22/22 08:00 12/22/22 08:00 12/22/22 08:00 12/22/22 08:00 12/22/22 08:00 12/22/22 06:12 Discharge Data Data Completed and Pending Labs on day of discharge: Labs from last 24 hours 12/22/22 05:38 Hgb 11.1 L Hct 33.6 L Discharge Plan Patient/Caregiver Discharge Instructions Activity: ambulate only with your walker, as instructed and other Diet: Regular Diet Prescriptions: New hydrocodone-acetaminophen 10-325 mg Tablet 1 - 2 tab PO Q4H PRN (Reason: Pain) Qty: 60 0RF Eliquis 2.5 mg tablet 2.5 mg PO BID Qty: 30 0RF Continued diazepam 10 mg tablet 10 mg PO TIDP PRN (Reason: leg cramps) lisinopril 40 mg tablet 40 mg PO QDAY methocarbamol 500 mg tablet 500 mg PO TID PRN (Reason: spasm/pain) Qty: 20 0RF Discontinued hydrocodone-acetaminophen 10-325 mg tablet 1 tab PO Q6HP PRN (Reason: Back Pain) Qty: 20 0RF Other Ambulatory Orders: Physical Therapy DC - General (Routine) Location: None Selected Ordered By: Valerio Winslow Follow Up Plan Follow up with: Harrison Rubin DO [Primary Care Provider] - Patient Disposition: Xfer SNF Prognosis: Undetermined Rehab Potential: Fair I certify that the patient requires SNF services: Yes Overall status at discharge: patient is progressing back to baseline Discharge Orders: Discharge Order (Routine); Ordered 12/20/22 Ordered By: Valerio Winslow Discharge Comment: cc: left hip femoral neck fracture s/p Perc pinnin QUALITY VTE Deep Vein Thrombosis/Pulmonary Embolism Present on Admission: No
[2022-12-22] MEDS: SENNOSIDES 1 TABLET PO SCH (20:19)
[2022-12-23] MEDS: HYDROmorphone 0.5 MG/0.5 ML SYRINGE IV PRN ×2 (01:24→11:09)
[2022-12-23] MEDS: HYDROcodone/APAP 10/325MG TABLET PO PRN ×3 (03:14→12:28)
[2022-12-23] MEDS: METHOCARBAMOL 750 MG TABLET PO PRN ×2 (03:19→11:09)
[2022-12-23 07:42] LABS: Hematocrit 35.1 % (34.1-44.9); Hemoglobin 11.4 g/dL (11.2-15.7)
--- NOTE | 2022-12-23 07:58 | Orthopedic Progress Note ---
SUBJECTIVE Subjective Patient information: Note initiated : 12/23/22 at 7:54 am Service Date, if different from initiated Date: [] Patient: Shiva Esparza 77 y/o F admitted on 12/20/22 for fall. Chief Complaint: [POD 3 left hip pinning ] Pertinent ROS: 10 points reviewed and are negative except where mentioned Constitutional Vitals: Vital Signs Temp Pulse Resp BP Pulse Ox O2 Del Method O2 Flow Rate 98.6 F 72 20 121/72 93 Room Air 2 12/23/22 07:12 12/23/22 04:00 12/23/22 07:12 12/23/22 07:12 12/23/22 07:12 12/23/22 07:12 12/23/22 06:09 Period Temp Pulse Resp BP Sys/Manzano Pulse Ox O2 Del Method O2 Flow Rate Last 24 Hr 97.3 F-98.6 F 72-87 18-20 117-149/61-92 93-98 Nasal Cannula- Room Air 2 Intake and Output 12/22/22 12/23/22 12/23/22 19:59 03:59 11:59 Intake Total 480 400 Output Total 700 1150 Balance -220 -750 Weight 174 lb 4.8 oz Intake & Output: Intake & Output 12/22/22 12/23/22 12/23/22 19:59 03:59 11:59 Intake Total 480 400 Output Total 700 1150 Balance -220 -750 Weight 174 lb 4.8 oz Intake: Oral 480 400 Output: Urine Catheter Amount 700 1150 Other: Meal Dinner Percent of Meal Consumed 100% Feeding Ability Assist with Tray Set Up Urine Appearance Clear Clear Urine Color Yellow Yellow Urine Odor Normal OBJ DATA Labs 12/23/22 05:45 12/21/22 05:45 Labs: Abnormal Lab Results 12/22/22 12/21/22 12/21/22 05:38 05:46 05:45 RBC 3.58 L Hgb 11.1 L Hct 33.6 L MCV 106.1 H MCH 34.6 H Neut % (Auto) 89.0 H Lymph % (Auto) 5.9 L Lymph # (Auto) 0.40 L Glucose 161 H Calcium 7.9 L Meds: Medications Acetaminophen (Acetaminophen 325 Mg Tablet) 650 mg PO Q6HP PRN; Protocol PRN Reason: Per Pain Protocol/Fever > 101 Last Admin: 12/22/22 10:56 Dose: 650 mg Hydrocodone Bitart/Acetaminophen (Hydrocodone/Apap 10/325mg Tablet) 0 tab PO Q4HP PRN; Protocol PRN Reason: Per Pain Protocol Last Admin: 12/23/22 03:14 Dose: 2 tab Apixaban (Apixaban 5 Mg Tablet) 2.5 mg PO BID [facility] Last Admin: 12/22/22 20:19 Dose: 2.5 mg Bisacodyl (Bisacodyl 10 Mg Supp.Rect) 10 mg [place] Q2-3DAYS PRN PRN Reason: Constipation Docusate Sodium (Docusate Sodium 100 Mg Capsule) 100 mg PO BID [facility] Last Admin: 12/22/22 20:19 Dose: 100 mg Hydromorphone HCl (Hydromorphone 0.5 Mg/0.5 Ml Syringe) 0.5 mg IV Q2HP PRN; Protocol PRN Reason: Per Pain Protocol Last Admin: 12/23/22 01:24 Dose: 0.5 mg Lidocaine (Lidocaine Patch) 1 patch TOPICAL DAILY@1000 [facility] Last Admin: 12/22/22 08:30 Dose: 1 patch Lisinopril (Lisinopril 20 Mg Tablet) 40 mg PO QDAY [facility] Last Admin: 12/22/22 08:30 Dose: 40 mg Magnesium Hydroxide (Magnesium Hydroxide 30 Ml Oral.Susp) 30 ml PO BIDP PRN PRN Reason: Constipation Methocarbamol (Methocarbamol 500 Mg Tablet) 500 mg PO TIDP PRN PRN Reason: spasm/pain Last Admin: 12/22/22 20:19 Dose: 500 mg Methocarbamol (Methocarbamol 750 Mg Tablet) 750 mg PO Q6HP PRN PRN Reason: Muscle Spasm Last Admin: 12/23/22 03:19 Dose: 750 mg Ondansetron HCl (Ondansetron 4 Mg/2 Ml Vial) 4 mg IV Q6HP PRN PRN Reason: Nausea And Vomiting Ondansetron HCl (Ondansetron 4 Mg Odt Tablet) 4 mg SL Q4HP PRN; Protocol PRN Reason: Nausea And Vomiting Polyethylene Glycol (Polyethylene Glycol 3350 17 Gm Packet) 17 gm PO DAILYP PRN PRN Reason: Constipation Senna (Sennosides 1 Tablet) 2 tab PO HS [facility] Last Admin: 12/22/22 20:19 Dose: Not Given Sodium Biphosphate/Sodium Phosphate (Fleets Adult Enema) 1 dose [place] Q3-4DAYS PRN PRN Reason: Constipation Sodium Chloride (0.9 % Sodium Chloride 10 Ml Syringe) 10 ml IV Q8 ENIO Last Admin: 12/22/22 21:10 Dose: 10 ml A/P Narrative A/P Narrative: Patient seen and examined this a.m. awake alert conversant, cooperative answers questions appropriately. Has some expected postoperative discomfort feels it is managed on current regimen. Dressing at left lower extremity clean dry and intact, both lower extremities are warm, well-perfused, neurovascularly intact with intact ankle motion to resistance testing. Reportedly has yet to mobilize or weight-bear, encouraged physical therapy participation. She is able to activate hip flexors flex extend knee on command. Stable from orthopedic standpoint will defer final disposition to attending hosp italist. Plan is for expected discharge in 1 to 2 days to rehab facility with follow-up at [facility] in 10 to 14 days. 50% weightbearing with walker/PT for assistance at all times. PT/OT Pain control DVT prophylaxis. Time Spent With Patient Time: Total time spent is greater than 50% in coordination of care (as documented) at patient's floor/unit and/or counseling patient:
[2022-12-23] MEDS: 0.9 % SODIUM CHLORIDE 10 ML SYRINGE IV SCH ×2 (08:01→11:59)
[2022-12-23] MEDS: LIDOCAINE PATCH TOPICAL SCH (08:02)
[2022-12-23] MEDS: APIXABAN 5 MG TABLET PO SCH (08:03)
[2022-12-23] MEDS: METHOCARBAMOL 500 MG TABLET PO PRN (08:03)
[2022-12-23] MEDS: LISINOPRIL 20 MG TABLET PO SCH (08:04)
[2022-12-23] MEDS: DOCUSATE SODIUM 100 MG CAPSULE PO SCH (08:04)
[2022-12-23 08:17] LABS: Blood Urea Nitrogen 13 mg/dL (8-23); Calcium 8.1 mg/dL (8.6-10.4); Carbon Dioxide 25 mmol/L (22-30); Chloride 103 mmol/L (96-108); Glomerular Filtration Rate 62; Glucose 78 mg/dL (70-105)
--- NOTE | 2022-12-23 08:37 | Internal Med Progress Note ---
SUBJECTIVE Subjective Patient information: Note initiated : 12/23/22 at 8:35 am Service Date, if different from initiated Date: [] Patient: Shiva Esparza a 77 y/o F admitted on 12/20/22 for fall. Chief Complaint: [] Interval history: Ms. Esparza is a 77 year old F with chronic back pain on chronic opiates, post polio syndrome, COPD, CKD. She was walking in her home with socks on her feet and slipped and fell on her left hip. Workup in the ER is notable for left hip fracture. CBC and BMP are unremarkable. Ortho is planning to taker her to the OR later today. Dec 21, s/p ORIF left hip 12/22 Patient complains of left hip pain. Anemia in the postop setting noted. Patient noted to be on oxygen the first night she came in. Probably related to pain medication. But currently is on room air and satting low to mid 90s. 3/ Anemia stable. Chemistry stable. Patient states poor sleep last night and trying to sleep currently. No other new complaints. Review of Systems: denies headache/fever/chills/nausea/vomiting/chest or abdominal pain/c ough/dyspnea/diarrhea. Otherwise see above. PHYSICAL EXAM: General: Alert, Awake, No acute Distress, obese Eyes/N/T: EOMI, no scleral icterus, Head/Neck: neck supple, full ROM, CV: RRR, No murmurs, Pulm: Clear b/l, no wheezing/rhonchi/rales, no respiratory distress Abd: soft, nontender, +BS x4 Ext: no clubbing/cyanosis/edema, left hip dressings Neuro: Alert, no focal deficits, moves all extremities, sensations intact b/l upper/lower Psychiatric: Skin: warm/dry, normal color Constitutional Vitals: Vital Signs Temp Pulse Resp BP Pulse Ox O2 Del Method O2 Flow Rate 98.6 F 72 20 121/72 93 Room Air 2 12/23/22 07:12 12/23/22 04:00 12/23/22 07:12 12/23/22 07:12 12/23/22 07:12 12/23/22 07:12 12/23/22 06:09 Period Temp Pulse Resp BP Sys/Manzano Pulse Ox O2 Del Method O2 Flow Rate Last 24 Hr 97.9 F-98.6 F 72-85 18-20 121-149/61-92 93-98 Nasal Cannula- Room Air 2 Intake and Output 12/22/22 12/23/22 12/23/22 19:59 03:59 11:59 Intake Total 480 400 Output Total 700 1150 Balance -220 -750 Weight 79.061 kg Intake & Output: Intake & Output 12/22/22 12/23/22 12/23/22 19:59 03:59 11:59 Intake Total 480 400 Output Total 700 1150 Balance -220 -750 Weight 79.061 kg Intake: Oral 480 400 Output: Urine Catheter Amount 700 1150 Other: Meal Dinner Percent of Meal Consumed 100% Feeding Ability Assist with Tray Set Up Urine Appearance Clear Clear Urine Color Yellow Yellow Urine Odor Normal OBJ DATA Labs 12/23/22 05:45 12/23/22 05:44 Labs: Abnormal Lab Results 12/23/22 12/22/22 12/21/22 05:44 05:38 05:46 RBC 3.58 L Hgb 11.1 L Hct 33.6 L MCV 106.1 H MCH 34.6 H Neut % (Auto) 89.0 H Lymph % (Auto) 5.9 L Lymph # (Auto) 0.40 L Anion Gap 7.0 L Glucose Calcium 8.1 L 12/21/22 05:45 RBC Hgb Hct MCV MCH Neut % (Auto) Lymph % (Auto) Lymph # (Auto) Anion Gap Glucose 161 H Calcium 7.9 L Meds: Medications Acetaminophen (Acetaminophen 325 Mg Tablet) 650 mg PO Q6HP PRN; Protocol PRN Reason: Per Pain Protocol/Fever > 101 Last Admin: 12/22/22 10:56 Dose: 650 mg Hydrocodone Bitart/Acetaminophen (Hydrocodone/Apap 10/325mg Tablet) 0 tab PO Q4HP PRN; Protocol PRN Reason: Per Pain Protocol Last Admin: 12/23/22 08:02 Dose: 2 tab Apixaban (Apixaban 5 Mg Tablet) 2.5 mg PO BID [facility] Last Admin: 12/23/22 08:03 Dose: 2.5 mg Bisacodyl (Bisacodyl 10 Mg Supp.Rect) 10 mg [place] Q2-3DAYS PRN PRN Reason: Constipation Docusate Sodium (Docusate Sodium 100 Mg Capsule) 100 mg PO BID [facility] Last Admin: 12/23/22 08:04 Dose: 100 mg Hydromorphone HCl (Hydromorphone 0.5 Mg/0.5 Ml Syringe) 0.5 mg IV Q2HP PRN; Protocol PRN Reason: Per Pain Protocol Last Admin: 12/23/22 01:24 Dose: 0.5 mg Lidocaine (Lidocaine Patch) 1 patch TOPICAL DAILY@1000 [facility] Last Admin: 12/23/22 08:02 Dose: 1 patch Lisinopril (Lisinopril 20 Mg Tablet) 40 mg PO QDAY [facility] Last Admin: 12/23/22 08:04 Dose: 40 mg Magnesium Hydroxide (Magnesium Hydroxide 30 Ml Oral.Susp) 30 ml PO BIDP PRN PRN Reason: Constipation Methocarbamol (Methocarbamol 500 Mg Tablet) 500 mg PO TIDP PRN PRN Reason: spasm/pain Last Admin: 12/23/22 08:03 Dose: 500 mg Methocarbamol (Methocarbamol 750 Mg Tablet) 750 mg PO Q6HP PRN PRN Reason: Muscle Spasm Last Admin: 12/23/22 03:19 Dose: 750 mg Ondansetron HCl (Ondansetron 4 Mg/2 Ml Vial) 4 mg IV Q6HP PRN PRN Reason: Nausea And Vomiting Ondansetron HCl (Ondansetron 4 Mg Odt Tablet) 4 mg SL Q4HP PRN; Protocol PRN Reason: Nausea And Vomiting Polyethylene Glycol (Polyethylene Glycol 3350 17 Gm Packet) 17 gm PO DAILYP PRN PRN Reason: Constipation Senna (Sennosides 1 Tablet) 2 tab PO HS [facility] Last Admin: 12/22/22 20:19 Dose: Not Given Sodium Biphosphate/Sodium Phosphate (Fleets Adult Enema) 1 dose [place] Q3-4DAYS PRN PRN Reason: Constipation Sodium Chloride (0.9 % Sodium Chloride 10 Ml Syringe) 10 ml IV Q8 [facility] Last Admin: 12/23/22 08:01 Dose: 10 ml A/P Narrative A/P Narrative: Assessment and plan *Closed hip fracture: s/p ORIF (12/21) - rehab placement -pt/ot -pain control -CM for placement *Acute hypoxic Resp failure: on admit, 2/2 pain meds? -now on room air -IS *likely COPD(does not wear O2@home): based on imaging and smoking history *Tobacco abuse: Smoking cessation counseling *Anemia in postop setting: Monitor *Chronic back pain: -continue home meds/narcotics *Obesity: BMI 30 *Anxiety: On diazepam *HTN: On lisinopril *ppx: per ortho apixaban Time Spent With Patient Time: Total time spent is greater than 50% in coordination of care (as documented) at patient's floor/unit and/or counseling patient: Subsequent: Total time with patient: 35 - 49 minutes QUALITY VTE Deep Vein Thrombosis/Pulmonary Embolism Present on Admission: No
[2022-12-23] MEDS: ACETAMINOPHEN 325 MG TABLET PO PRN (11:09)
== END 2022-12-23 12:59 | DRG 480 ==
LOC: ED 04:33 → MEDSUR 13:40
PROVIDERS: ADMIT Internal Medicine; ATTEND Internal Medicine